=== PATIENT | female | born 2000 | race African-American/Black ===

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

== ENCOUNTER 2020-06-18 10:32 | Inpatient (IN) | payer MEDICAID ==
[~2020-06-18] VITALS: Ht 165.1 cm; Wt 93.7 kg
[~2020-06-18 10:32] MED LIST: FERR325T6 MT
[2020-06-18] MEDS ORDERED: IBUPROFEN 600MG TABLET PO ONE (10:45)
[2020-06-18 11:19] LABS: BASOPHILS % 0.6 % (0.0-2.0); EOSINOPHILS % 4.4 % (0.0-5.0); HEMOGLOBIN. 12.1 g/dL (12.0-16.0); LYMPHOCYTES % 16.4 % (20.0-50.0); MEAN CORPUSCULAR HEMOGLOBIN 25.9 pg (28.0-32.0); MEAN PLATELET VOLUME 8.2 fl (7.4-10.4); MONOCYTES % 8.5 % (2.0-8.0); NEUTROPHILS % 70.1 % (40.0-76.0); PLATELET 309 x1000/uL (130-400); RED BLOOD CELL COUNT 4.69 mill/uL (4.2-5.4); RED CELL DISTRIBUTION WIDTH 17.7 % (11.6-14.6)
[2020-06-18 11:27] LABS: CHLORIDE 109 mEq/L (98-107)
[2020-06-18] MEDS ORDERED: LORAZEPAM 2MG/ML CPJ IV ONE ×2 (11:30→15:15)
[2020-06-18] MEDS ORDERED: LORAZEPAM 2MG/ML CPJ ONE (11:37)
[2020-06-18] MEDS ORDERED: PHENYTOIN SODIUM EXTENDED 100MG CAPSULE PO ONE ×2 (13:45→16:09)
[2020-06-18 16:01] LABS: HCG SCREEN NEGATIVE
[2020-06-18] MEDS ORDERED: LORAZEPAM 2MG/ML CPJ IM ONE (20:45)
[2020-06-18] MEDS: OLANZAPINE 10 MG/VIAL IM ONE ×2 (21:12→21:40)
[2020-06-18 23:20] LABS: CHLORIDE 110 mEq/L (98-107)
[2020-06-19] VITALS (7 sets, daily range): BP systolic 106–160; BP diastolic 50–59
[2020-06-19] MEDS ORDERED: CLONIDINE 0.1MG TABLET PO PRN (10:00)
[2020-06-19] MEDS: LAMOTRIGINE 150MG TABLET PO SCH (21:10)
[2020-06-19] MEDS: PHENYTOIN SODIUM EXTENDED 100MG CAPSULE PO SCH (21:10)
[2020-06-19 22:30] LABS: *BARBITURATES SCREEN URINE NEGATIVE (NEGATIVE); *BENZODIAZEPINES SCREEN URINE NEGATIVE (NEGATIVE)
[2020-06-19 22:31] LABS: *AMPHETAMINES SCREEN URINE NEGATIVE (NEGATIVE); *COCAINE SCREEN URINE NEGATIVE (NEGATIVE); CANNABINOID URINE SCREEN NEGATIVE (NEGATIVE); METHADONE URINE SCREEN NEGATIVE (NEGATIVE); OPIATES URINE SCREEN NEGATIVE (NEGATIVE); PHENCYCLIDINE URINE SCREEN NEGATIVE (NEGATIVE)
[2020-06-19] MEDS: ACETAMINOPHEN 325MG TABLET PO PRN (23:24)
[2020-06-20] VITALS (7 sets, daily range): BP systolic 104–117; BP diastolic 50–61
[2020-06-20] MEDS: PHENYTOIN SODIUM EXTENDED 100MG CAPSULE PO SCH ×4 (06:26→22:59)
[2020-06-20] MEDS: LAMOTRIGINE 150MG TABLET PO SCH ×2 (08:23→21:00)
[2020-06-20] MEDS: LORAZEPAM 2MG/ML CPJ IV PRN ×2 (10:09→21:21)
[2020-06-20 12:08] LABS: BASOPHILS % 0.7 % (0.0-2.0); EOSINOPHILS % 4.2 % (0.0-5.0); HEMATOCRIT. 35.3 % (36.0-48.0); HEMOGLOBIN. 11.4 g/dL (12.0-16.0); LYMPHOCYTES % 16.7 % (20.0-50.0); MEAN CORPUSCULAR HEMOGLOBIN 26.2 pg (28.0-32.0); MEAN CORPUSCULAR VOLUME 81.5 fL (81.0-99.0); MEAN PLATELET VOLUME 8.4 fl (7.4-10.4); MONOCYTES % 9.9 % (2.0-8.0); NEUTROPHILS % 68.5 % (40.0-76.0); PLATELET 282 x1000/uL (130-400); RED BLOOD CELL COUNT 4.33 mill/uL (4.2-5.4); RED CELL DISTRIBUTION WIDTH 17.5 % (11.6-14.6)
[2020-06-20 12:12] LABS: CHLORIDE 109 mEq/L (98-107)
[2020-06-20] MEDS ORDERED: BISACODYL 10MG SUPP PR PRN (12:45)
[2020-06-20] MEDS ORDERED: MAGNESIUM HYDROXIDE 400MG/5ML 30ML UDC PO PRN (12:45)
[2020-06-20] MEDS ORDERED: POLYETHYLENE GLYCOL 3350 (17GM) 1 DOSE PACK PO PRN (12:45)
[2020-06-20] MEDS: DOCUSATE SODIUM SUGAR FREE 100MG/10ML UDC PO SCH (13:59)
[2020-06-20] MEDS: SENNOSIDES/DOCUSATE SOD 8.6/50MG TABLET PO SCH (14:00)
[2020-06-20] MEDS: ACETAMINOPHEN 325MG TABLET PO PRN ×2 (16:42→21:00)
[2020-06-20] MEDS ORDERED: NA PHOS,M-B/NA PHOS,DI-BA ENEMA 118ML PR ONE (18:30)
[2020-06-20] MEDS ORDERED: PHENYTOIN SODIUM 500 MG in SODIUM CHLORIDE 0.9% 50 ML IV NR (22:00)
[2020-06-20] MEDS: HALOPERIDOL LACTATE 5MG/ML VIAL IM PRN (22:07)
[2020-06-21] VITALS (8 sets, daily range): BP systolic 93–119; BP diastolic 46–70
[2020-06-21] MEDS ORDERED: LAMO100T16 PO (07:47)
[2020-06-21] MEDS ORDERED: PHEN100C12 PO (07:47)
[2020-06-21] MEDS ORDERED: ESCI-7 PO (07:47)
[2020-06-21] MEDS ORDERED: FOLI-43 PO (07:47)
[2020-06-21] MEDS ORDERED: NITR100C11 PO (07:47)
[2020-06-21] MEDS ORDERED: OLAN10TA19 PO (07:47)
[2020-06-21] MEDS ORDERED: VALP250C3 PO (07:47)
[2020-06-21] MEDS ORDERED: RISP1TAB97 PO (07:47)
[2020-06-21] MEDS ORDERED: FLUO20CA39 PO (07:47)
[2020-06-21] MEDS: DOCUSATE SODIUM SUGAR FREE 100MG/10ML UDC PO SCH ×2 (09:00→09:23)
[2020-06-21] MEDS: SENNOSIDES/DOCUSATE SOD 8.6/50MG TABLET PO SCH (09:23)
[2020-06-21] MEDS: LAMOTRIGINE 150MG TABLET PO SCH ×2 (09:23→20:39)
[2020-06-21] MEDS: PHENYTOIN SODIUM EXTENDED 100MG CAPSULE PO SCH ×2 (09:24→18:00)
[2020-06-21] MEDS ORDERED: DEXT 5%/0.9% NACL 1,000 ML IV SCH (13:45)
[2020-06-21] MEDS: ONDANSETRON HCL 4MG/2ML INJ IV PRN (14:15)
[2020-06-21] MEDS ORDERED: DEXT 5%/0.45% NACL 500ML 1,000 ML IV SCH (14:30)
[2020-06-21] MEDS: DEXT 5%/0.45% NACL 1000ML 1,000 ML IV SCH (18:53)
[2020-06-21] MEDS: CEFTRIAXONE 1,000 MG in DEXTROSE 5% WATER 50 ML IV SCH (20:39)
[2020-06-21] MEDS: ACETAMINOPHEN 325MG TABLET PO PRN (21:00)
[2020-06-21] MEDS: LORAZEPAM 2MG/ML CPJ IV PRN (22:55)
[2020-06-21] MEDS ORDERED: LORAZEPAM 2MG/ML CPJ IV NR ×2 (23:35→23:36)
[2020-06-22] VITALS (8 sets, daily range): BP systolic 101–151; BP diastolic 43–97
[2020-06-22] MEDS: HALOPERIDOL LACTATE 5MG/ML VIAL IM PRN ×2 (00:55→12:20)
[2020-06-22] MEDS: DEXT 5%/0.45% NACL 1000ML 1,000 ML IV SCH ×2 (06:16→17:32)
[2020-06-22] MEDS: SENNOSIDES/DOCUSATE SOD 8.6/50MG TABLET PO SCH (09:00)
[2020-06-22] MEDS: DOCUSATE SODIUM SUGAR FREE 100MG/10ML UDC PO SCH (09:00)
[2020-06-22] MEDS: PHENYTOIN SODIUM EXTENDED 100MG CAPSULE PO SCH ×2 (09:14→17:32)
[2020-06-22] MEDS: LAMOTRIGINE 150MG TABLET PO SCH ×2 (09:14→20:33)
[2020-06-22] MEDS ORDERED: PHENYTOIN SODIUM 500 MG in SODIUM CHLORIDE 0.9% 50 ML IV SCH (14:00)
[2020-06-22] MEDS ORDERED: PHENYTOIN SODIUM EXTENDED 100MG CAPSULE PO NR (17:30)
[2020-06-22] MEDS ORDERED: LORAZEPAM 1MG TABLET PO PRN ×2 (17:30→17:45)
[2020-06-22] MEDS ORDERED: LORAZEPAM 2MG/ML CPJ IM PRN (17:30)
[2020-06-22] MEDS: ONDANSETRON HCL 4MG/2ML INJ IV PRN (18:21)
[2020-06-22] MEDS: MAGNESIUM/ALUMINUM HYDROXIDE/SIMETHICONE 30ML UDC PO PRN (18:34)
[2020-06-22] MEDS: LORAZEPAM 2MG/ML CPJ IV PRN ×2 (19:15→23:36)
[2020-06-22] MEDS: CEFTRIAXONE 1,000 MG in DEXTROSE 5% WATER 50 ML IV SCH (20:33)
[2020-06-23] VITALS (12 sets, daily range): BP systolic 99–121; BP diastolic 46–63
[2020-06-23] MEDS: DEXT 5%/0.45% NACL 1000ML 1,000 ML IV SCH ×3 (05:48→17:34)
[2020-06-23] MEDS: DOCUSATE SODIUM SUGAR FREE 100MG/10ML UDC PO SCH (09:00)
[2020-06-23] MEDS: SENNOSIDES/DOCUSATE SOD 8.6/50MG TABLET PO SCH (09:00)
[2020-06-23] MEDS: LAMOTRIGINE 150MG TABLET PO SCH ×2 (09:16→20:17)
[2020-06-23] MEDS: PHENYTOIN SODIUM EXTENDED 100MG CAPSULE PO SCH ×2 (09:16→17:35)
[2020-06-23] MEDS: LORAZEPAM 2MG/ML CPJ IV PRN ×2 (13:41→20:36)
[2020-06-23] MEDS: CEFTRIAXONE 1,000 MG in DEXTROSE 5% WATER 50 ML IV SCH (20:17)
[2020-06-23] MEDS: HALOPERIDOL LACTATE 5MG/ML VIAL IM PRN (21:13)
[2020-06-23] MEDS ORDERED: DIPHENHYDRAMINE 50MG/ML VIAL IV NR (21:45)
[2020-06-23] MEDS ORDERED: LORAZEPAM 2MG/ML CPJ IV NR (21:45)
[2020-06-23] MEDS ORDERED: HALOPERIDOL LACTATE 5MG/ML VIAL IM NR (21:45)
[2020-06-24] VITALS (7 sets, daily range): BP systolic 95–120; BP diastolic 42–79
[2020-06-24] MEDS: LORAZEPAM 2MG/ML CPJ IV PRN ×2 (04:55→11:11)
[2020-06-24] MEDS: HALOPERIDOL LACTATE 5MG/ML VIAL IM PRN (05:21)
[2020-06-24 06:21] LABS: BASOPHILS % 0.4 % (0.0-2.0); EOSINOPHILS % 6.5 % (0.0-5.0); HEMATOCRIT. 33.9 % (36.0-48.0); LYMPHOCYTES % 21.6 % (20.0-50.0); MEAN CORPUSCULAR HEMOGLOBIN 26.4 pg (28.0-32.0); MEAN CORPUSCULAR VOLUME 81.6 fL (81.0-99.0); MEAN PLATELET VOLUME 8.8 fl (7.4-10.4); NEUTROPHILS % 61.5 % (40.0-76.0); PLATELET 311 x1000/uL (130-400); RED BLOOD CELL COUNT 4.16 mill/uL (4.2-5.4); RED CELL DISTRIBUTION WIDTH 17.7 % (11.6-14.6)
[2020-06-24 08:04] LABS: CHLORIDE 108 mEq/L (98-107)
[2020-06-24] MEDS: DOCUSATE SODIUM SUGAR FREE 100MG/10ML UDC PO SCH ×2 (09:00→10:25)
[2020-06-24] MEDS: LAMOTRIGINE 150MG TABLET PO SCH ×2 (10:24→20:39)
[2020-06-24] MEDS: PHENYTOIN SODIUM EXTENDED 100MG CAPSULE PO SCH ×2 (10:24→17:19)
[2020-06-24] MEDS: SENNOSIDES/DOCUSATE SOD 8.6/50MG TABLET PO SCH (10:24)
[2020-06-24] MEDS: CLONAZEPAM 0.5MG TABLET PO SCH ×3 (10:30→17:19)
[2020-06-24] MEDS: DEXT 5%/0.45% NACL 1000ML 1,000 ML IV SCH (12:17)
[2020-06-24] MEDS: MAGNESIUM/ALUMINUM HYDROXIDE/SIMETHICONE 30ML UDC PO PRN (20:39)
[2020-06-25] VITALS (7 sets, daily range): BP systolic 94–127; BP diastolic 43–79
[2020-06-25 06:05] LABS: CHLORIDE 107 mEq/L (98-107)
[2020-06-25 06:21] LABS: BASOPHILS % 0.6 % (0.0-2.0); HEMOGLOBIN. 10.6 g/dL (12.0-16.0); LYMPHOCYTES % 19.7 % (20.0-50.0); MEAN CORPUSCULAR HEMOGLOBIN 26.8 pg (28.0-32.0); MEAN CORPUSCULAR VOLUME 83.1 fL (81.0-99.0); MEAN PLATELET VOLUME 8.8 fl (7.4-10.4); NEUTROPHILS % 62.7 % (40.0-76.0); PLATELET 295 x1000/uL (130-400); RED BLOOD CELL COUNT 3.97 mill/uL (4.2-5.4); RED CELL DISTRIBUTION WIDTH 17.5 % (11.6-14.6)
[2020-06-25] MEDS: DOCUSATE SODIUM SUGAR FREE 100MG/10ML UDC PO SCH (09:00)
[2020-06-25] MEDS: CLONAZEPAM 0.5MG TABLET PO SCH ×3 (09:00→17:12)
[2020-06-25] MEDS: PHENYTOIN SODIUM EXTENDED 100MG CAPSULE PO SCH ×2 (10:05→17:00)
[2020-06-25] MEDS: SENNOSIDES/DOCUSATE SOD 8.6/50MG TABLET PO SCH (10:08)
[2020-06-25] MEDS: LAMOTRIGINE 150MG TABLET PO SCH ×2 (10:08→20:28)
[2020-06-25] MEDS: ACETAMINOPHEN 325MG TABLET PO PRN ×2 (13:05→20:28)
[2020-06-25] MEDS: LORAZEPAM 2MG/ML CPJ IM PRN (13:33)
[2020-06-25 14:15] LABS: TOTAL IRON BINDING CAPACITY 373 ug/dL (250-450)
[2020-06-25] MEDS ORDERED: PHENYTOIN SODIUM EXTENDED 100MG CAPSULE PO NR (16:00)
[2020-06-25] MEDS: HALOPERIDOL LACTATE 5MG/ML VIAL IM PRN (17:27)
[2020-06-25] MEDS ORDERED: DIPHENHYDRAMINE 25MG CAPSULE PO NR (21:57)
[2020-06-26] VITALS (7 sets, daily range): BP systolic 94–121; BP diastolic 49–89
[2020-06-26] MEDS: DOCUSATE SODIUM SUGAR FREE 100MG/10ML UDC PO SCH (09:00)
[2020-06-26] MEDS: SENNOSIDES/DOCUSATE SOD 8.6/50MG TABLET PO SCH (09:04)
[2020-06-26] MEDS: LAMOTRIGINE 150MG TABLET PO SCH ×2 (09:04→20:03)
[2020-06-26] MEDS: PHENYTOIN SODIUM EXTENDED 100MG CAPSULE PO SCH ×2 (09:04→17:12)
[2020-06-26] MEDS: CLONAZEPAM 0.5MG TABLET PO SCH ×3 (09:05→17:13)
[2020-06-26] MEDS ORDERED: LIDOCAINE HCL 1% 20ML VIAL (Pyxis) INJ ONE (09:08)
[2020-06-26] MEDS: ACETAMINOPHEN 325MG TABLET PO PRN ×2 (10:41→20:03)
[2020-06-26] MEDS ORDERED: DOCUSATE SODIUM SUGAR FREE 100MG/10ML UDC PO PRN (11:30)
[2020-06-26] MEDS: LORAZEPAM 1MG TABLET PO PRN (17:12)
[2020-06-26] MEDS: MICONAZOLE NITRATE 2% OINT 71GM TOP SCH (17:13)
[2020-06-26] MEDS: LORAZEPAM 2MG/ML CPJ IM PRN (20:02)
[2020-06-26] MEDS: LORAZEPAM 2MG/ML CPJ IV PRN (21:24)
[2020-06-26] MEDS: DIPHENHYDRAMINE 25MG CAPSULE PO PRN (21:30)
[2020-06-26] MEDS: HALOPERIDOL LACTATE 5MG/ML VIAL IM PRN (23:32)
[2020-06-27] VITALS: BP 110/80
[2020-06-27 04:00] VITALS: BP 122/66
[2020-06-27 08:00] VITALS: BP 139/77
[2020-06-27] MEDS: LAMOTRIGINE 150MG TABLET PO SCH ×2 (08:50→21:13)
[2020-06-27] MEDS: PHENYTOIN SODIUM EXTENDED 100MG CAPSULE PO SCH ×2 (08:50→18:00)
[2020-06-27] MEDS: MICONAZOLE NITRATE 2% OINT 71GM TOP SCH ×2 (08:51→18:00)
[2020-06-27] MEDS: CLONAZEPAM 0.5MG TABLET PO SCH ×3 (08:51→18:00)
[2020-06-27] MEDS: SENNOSIDES/DOCUSATE SOD 8.6/50MG TABLET PO SCH (09:00)
[2020-06-27 10:18] LABS: BASOPHILS % 0.5 % (0.0-2.0); EOSINOPHILS % 8.3 % (0.0-5.0); HEMATOCRIT. 33.3 % (36.0-48.0); HEMOGLOBIN. 10.9 g/dL (12.0-16.0); LYMPHOCYTES % 23.6 % (20.0-50.0); MEAN CORPUSCULAR HEMOGLOBIN 27.1 pg (28.0-32.0); MEAN CORPUSCULAR VOLUME 82.9 fL (81.0-99.0); MEAN PLATELET VOLUME 8.8 fl (7.4-10.4); MONOCYTES % 8.7 % (2.0-8.0); NEUTROPHILS % 58.9 % (40.0-76.0); PLATELET 275 x1000/uL (130-400); RED BLOOD CELL COUNT 4.02 mill/uL (4.2-5.4); RED CELL DISTRIBUTION WIDTH 17.4 % (11.6-14.6)
[2020-06-27 10:27] LABS: CHLORIDE 108 mEq/L (98-107)
[2020-06-27 12:00] VITALS: BP 117/62
[2020-06-27] MEDS: DIPHENHYDRAMINE 25MG CAPSULE PO PRN (13:26)
[2020-06-27] MEDS: METRONIDAZOLE 0.75% VAG GEL 70GM VG SCH (13:27)
[2020-06-27 16:00] VITALS: BP 139/71
[2020-06-27 20:00] VITALS: BP 122/80
[2020-06-28] VITALS: BP 117/65
[2020-06-28] MEDS: LORAZEPAM 2MG/ML CPJ IV PRN ×2 (00:16→22:38)
[2020-06-28] MEDS: HALOPERIDOL LACTATE 5MG/ML VIAL IM PRN ×2 (01:53→20:18)
[2020-06-28 04:00] VITALS: BP 102/67
[2020-06-28 06:59] LABS: BASOPHILS % 0.5 % (0.0-2.0); EOSINOPHILS % 6.7 % (0.0-5.0); HEMATOCRIT. 33.4 % (36.0-48.0); HEMOGLOBIN. 10.9 g/dL (12.0-16.0); MEAN CORPUSCULAR HEMOGLOBIN 26.6 pg (28.0-32.0); MEAN CORPUSCULAR VOLUME 81.5 fL (81.0-99.0); MEAN PLATELET VOLUME 8.5 fl (7.4-10.4); MONOCYTES % 9.7 % (2.0-8.0); NEUTROPHILS % 64.1 % (40.0-76.0); PLATELET 299 x1000/uL (130-400); RED BLOOD CELL COUNT 4.09 mill/uL (4.2-5.4)
[2020-06-28 07:10] LABS: CHLORIDE 107 mEq/L (98-107)
[2020-06-28] MEDS: PHENYTOIN SODIUM EXTENDED 100MG CAPSULE PO SCH ×2 (08:37→16:09)
[2020-06-28] MEDS: LAMOTRIGINE 150MG TABLET PO SCH ×2 (08:37→20:05)
[2020-06-28] MEDS: CLONAZEPAM 0.5MG TABLET PO SCH ×3 (08:37→16:09)
[2020-06-28] MEDS: SENNOSIDES/DOCUSATE SOD 8.6/50MG TABLET PO SCH (08:37)
[2020-06-28] MEDS: MICONAZOLE NITRATE 2% OINT 71GM TOP SCH ×2 (08:38→16:11)
[2020-06-28] MEDS: METRONIDAZOLE 0.75% VAG GEL 70GM VG SCH (08:38)
[2020-06-28 11:00] VITALS: BP 132/78
[2020-06-28] MEDS: ACETAMINOPHEN 325MG TABLET PO PRN ×2 (12:04→16:08)
[2020-06-28] MEDS: DIPHENHYDRAMINE HCL/ZINC ACET 28 GM CREAM TOP SCH ×2 (12:16→16:11)
[2020-06-28 15:28] VITALS: BP 124/80
[2020-06-28 17:21] VITALS: BP 133/82
[2020-06-28 20:00] VITALS: BP 107/63
[2020-06-28] MEDS: LORAZEPAM 1MG TABLET PO PRN (22:17)
[2020-06-28] MEDS: DIPHENHYDRAMINE 25MG CAPSULE PO PRN (23:11)
[2020-06-29] VITALS: BP 121/64
[2020-06-29 04:00] VITALS: BP 105/53
[2020-06-29 08:00] VITALS: BP 119/69
[2020-06-29] MEDS: PHENYTOIN SODIUM EXTENDED 100MG CAPSULE PO SCH ×2 (09:06→17:09)
[2020-06-29] MEDS: SENNOSIDES/DOCUSATE SOD 8.6/50MG TABLET PO SCH (09:06)
[2020-06-29] MEDS: METRONIDAZOLE 0.75% VAG GEL 70GM VG SCH (09:06)
[2020-06-29] MEDS: MICONAZOLE NITRATE 2% OINT 71GM TOP SCH ×2 (09:06→17:00)
[2020-06-29] MEDS: DIPHENHYDRAMINE HCL/ZINC ACET 28 GM CREAM TOP SCH ×2 (09:06→17:00)
[2020-06-29] MEDS: LAMOTRIGINE 150MG TABLET PO SCH ×2 (09:11→21:30)
[2020-06-29] MEDS: LORAZEPAM 2MG/ML CPJ IV PRN ×3 (09:40→23:40)
[2020-06-29] MEDS: FOLIC ACID 1MG TABLET PO SCH (12:41)
[2020-06-29] MEDS: FERROUS SULFATE 325MG TABLET PO SCH ×2 (12:41→17:14)
[2020-06-29 13:10] VITALS: BP 116/71
[2020-06-29 15:47] LABS: BASOPHILS % 0.6 % (0.0-2.0); HEMATOCRIT. 34.6 % (36.0-48.0); HEMOGLOBIN. 11.5 g/dL (12.0-16.0); LYMPHOCYTES % 19.6 % (20.0-50.0); MEAN CORPUSCULAR HEMOGLOBIN 27.3 pg (28.0-32.0); MEAN CORPUSCULAR VOLUME 82.4 fL (81.0-99.0); MEAN PLATELET VOLUME 8.2 fl (7.4-10.4); MONOCYTES % 8.3 % (2.0-8.0); NEUTROPHILS % 63.5 % (40.0-76.0); PLATELET 292 x1000/uL (130-400); RED CELL DISTRIBUTION WIDTH 17.1 % (11.6-14.6)
[2020-06-29 16:00] VITALS: BP 117/86
[2020-06-29 16:01] LABS: CHLORIDE 106 mEq/L (98-107)
[2020-06-29 23:30] VITALS: BP 98/49
[2020-06-30 04:00] VITALS: BP 108/64
[2020-06-30 08:00] VITALS: BP 113/72
[2020-06-30] MEDS: SENNOSIDES/DOCUSATE SOD 8.6/50MG TABLET PO SCH (09:47)
[2020-06-30] MEDS: PHENYTOIN SODIUM EXTENDED 100MG CAPSULE PO SCH ×2 (09:47→17:03)
[2020-06-30] MEDS: FOLIC ACID 1MG TABLET PO SCH (09:47)
[2020-06-30] MEDS: LAMOTRIGINE 150MG TABLET PO SCH ×2 (09:48→20:38)
[2020-06-30] MEDS: FERROUS SULFATE 325MG TABLET PO SCH ×3 (09:48→17:00)
[2020-06-30] MEDS: DIPHENHYDRAMINE HCL/ZINC ACET 28 GM CREAM TOP SCH ×2 (09:50→17:03)
[2020-06-30] MEDS: MICONAZOLE NITRATE 2% OINT 71GM TOP SCH ×2 (09:51→17:03)
[2020-06-30] MEDS: METRONIDAZOLE 0.75% VAG GEL 70GM VG SCH (09:51)
[2020-06-30 12:00] VITALS: BP 118/61
[2020-06-30] MEDS: HALOPERIDOL LACTATE 5MG/ML VIAL IM PRN (16:24)
[2020-06-30 20:00] VITALS: BP 139/65
[2020-06-30] MEDS: LORAZEPAM 1MG TABLET PO PRN (20:39)
[2020-06-30] MEDS: ACETAMINOPHEN 325MG TABLET PO PRN (20:42)
[2020-06-30] MEDS: DIPHENHYDRAMINE 25MG CAPSULE PO PRN (20:42)
[2020-06-30] MEDS: LORAZEPAM 2MG/ML CPJ IV PRN (21:30)
[2020-07-01] MEDS: HALOPERIDOL LACTATE 5MG/ML VIAL IM PRN (00:20)
[2020-07-01] MEDS: FERROUS SULFATE 325MG TABLET PO SCH ×3 (07:15→17:15)
[2020-07-01 09:00] VITALS: BP 111/50
[2020-07-01] MEDS: SENNOSIDES/DOCUSATE SOD 8.6/50MG TABLET PO SCH (09:00)
[2020-07-01] MEDS: FOLIC ACID 1MG TABLET PO SCH (09:00)
[2020-07-01] MEDS: METRONIDAZOLE 0.75% VAG GEL 70GM VG SCH (10:51)
[2020-07-01] MEDS: LAMOTRIGINE 150MG TABLET PO SCH ×2 (10:51→20:21)
[2020-07-01] MEDS: PHENYTOIN SODIUM EXTENDED 100MG CAPSULE PO SCH ×2 (10:51→17:54)
[2020-07-01] MEDS: DIPHENHYDRAMINE HCL/ZINC ACET 28 GM CREAM TOP SCH ×2 (10:52→17:00)
[2020-07-01] MEDS: MICONAZOLE NITRATE 2% OINT 71GM TOP SCH ×2 (10:52→17:00)
[2020-07-01 13:30] VITALS: BP 102/54
[2020-07-01 17:00] VITALS: BP 92/57
[2020-07-01] MEDS: ONDANSETRON HCL 4MG/2ML INJ IV PRN (18:13)
[2020-07-01 20:00] VITALS: BP 109/53
[2020-07-01] MEDS: LAMOTRIGINE 25MG TABLET PO SCH (20:21)
[2020-07-01] MEDS: DIPHENHYDRAMINE 25MG CAPSULE PO PRN (20:39)
[2020-07-01] MEDS ORDERED: LAMOTRIGINE 150MG TABLET PO SCH (21:00)
[2020-07-01] MEDS: LORAZEPAM 2MG/ML CPJ IV PRN (23:35)
[2020-07-02] VITALS: BP 110/62
[2020-07-02 04:00] VITALS: BP 119/71
[2020-07-02] MEDS: FERROUS SULFATE 325MG TABLET PO SCH ×3 (07:15→17:08)
[2020-07-02 08:00] VITALS: BP 99/48
[2020-07-02] MEDS: SENNOSIDES/DOCUSATE SOD 8.6/50MG TABLET PO SCH (09:00)
[2020-07-02] MEDS: FOLIC ACID 1MG TABLET PO SCH (09:00)
[2020-07-02] MEDS: MICONAZOLE NITRATE 2% OINT 71GM TOP SCH ×2 (09:00→17:00)
[2020-07-02] MEDS: METRONIDAZOLE 0.75% VAG GEL 70GM VG SCH (09:00)
[2020-07-02] MEDS: DIPHENHYDRAMINE HCL/ZINC ACET 28 GM CREAM TOP SCH ×2 (09:00→17:00)
[2020-07-02] MEDS: PHENYTOIN SODIUM EXTENDED 100MG CAPSULE PO SCH ×2 (10:45→17:13)
[2020-07-02] MEDS: LAMOTRIGINE 150MG TABLET PO SCH ×2 (10:45→20:45)
[2020-07-02] MEDS: LAMOTRIGINE 25MG TABLET PO SCH ×2 (10:46→20:46)
[2020-07-02 12:00] VITALS: BP 110/55
[2020-07-02 16:00] VITALS: BP 105/52
[2020-07-02] MEDS: ACETAMINOPHEN 325MG TABLET PO PRN ×2 (17:13→21:51)
[2020-07-02] MEDS: LORAZEPAM 2MG/ML CPJ IV PRN ×2 (19:57→22:12)
[2020-07-02 20:00] VITALS: BP 108/62
[2020-07-02] MEDS ORDERED: CEFTRIAXONE 1,000 MG in DEXTROSE 5% WATER 50 ML IV SCH (21:00)
[2020-07-02] MEDS: VANCOMYCIN 750 MG PREMIX 150 ML IV SCH (22:07)
[2020-07-03] VITALS (10 sets, daily range): BP systolic 81–118; BP diastolic 31–78
[2020-07-03] MEDS ORDERED: PHENYTOIN SODIUM 300 MG in SODIUM CHLORIDE 0.9% 50 ML IV SCH (01:00)
[2020-07-03] MEDS: DIPHENHYDRAMINE 25MG CAPSULE PO PRN (01:39)
[2020-07-03] MEDS: LORAZEPAM 2MG/ML CPJ IV PRN ×2 (01:42→07:50)
[2020-07-03] MEDS: METRONIDAZOLE 0.75% VAG GEL 70GM VG SCH (09:00)
[2020-07-03] MEDS: DIPHENHYDRAMINE HCL/ZINC ACET 28 GM CREAM TOP SCH (09:00)
[2020-07-03] MEDS: MICONAZOLE NITRATE 2% OINT 71GM TOP SCH (09:00)
[2020-07-03] MEDS: VANCOMYCIN 750 MG PREMIX 150 ML IV SCH (09:23)
[2020-07-03] MEDS: FOLIC ACID 1MG TABLET PO SCH (09:28)
[2020-07-03] MEDS: SENNOSIDES/DOCUSATE SOD 8.6/50MG TABLET PO SCH (09:28)
[2020-07-03] MEDS: LAMOTRIGINE 25MG TABLET PO SCH (09:28)
[2020-07-03] MEDS: LAMOTRIGINE 150MG TABLET PO SCH (09:28)
[2020-07-03] MEDS: FERROUS SULFATE 325MG TABLET PO SCH (09:29)
[2020-07-03] MEDS: PHENYTOIN SODIUM EXTENDED 100MG CAPSULE PO SCH (09:29)
[2020-07-03] MEDS ORDERED: LORAZEPAM 0.5MG TABLET PO SCH (11:00)
[2020-07-03] MEDS ORDERED: ZONISAMIDE 100MG CAPSULE PO SCH (13:30)
[2020-07-03] MEDS ORDERED: MEROPENEM 1,000 MG in SODIUM CHLORIDE 0.9% 100 ML IV SCH (17:30)
== END 2020-07-03 15:30 | DRG 756 ==
LOC: ER 10:32 → 6WST 15:57 → EDBEDREQSVC 16:02 → EDBEDREQ 16:02 → CANBEDREQ 16:31 → ENRESERV 06-19 08:22 → 5EST 06-22 22:41 → 6WST 06-23 23:01 → 5WST 06-29 12:57 → 5EST 07-03 01:05
PROVIDERS: ADMIT Internal Medicine; ATTEND Internal Medicine
PROC: 4A10X4Z Monitoring of Central Nervous Electrical Activity, External Approach (ICD-10-PCS; principal; 2020-06-20)
PROC: 05HY33Z Insertion of Infusion Device into Upper Vein, Percutaneous Approach (ICD-10-PCS; 2020-06-23)
PROC: B54MZZA Ultrasonography of Right Upper Extremity Veins, Guidance (ICD-10-PCS; 2020-06-23)
PROC: B51MZZA Fluoroscopy of Right Upper Extremity Veins, Guidance (ICD-10-PCS; 2020-06-23)
PROC: 02HV33Z Insertion of Infusion Device into Superior Vena Cava, Percutaneous Approach (ICD-10-PCS; 2020-06-26)
PROC: B548ZZA Ultrasonography of Superior Vena Cava, Guidance (ICD-10-PCS; 2020-06-26)
PROC: B518ZZA Fluoroscopy of Superior Vena Cava, Guidance (ICD-10-PCS; 2020-06-26)
DX: F41.1 Generalized anxiety disorder (principal); R45.851 Suicidal ideations; E66.01 Morbid (severe) obesity due to excess calories; R07.89 Other chest pain; G40.909 Epilepsy, unspecified, not intractable, without status epilepticus; F45.9 Somatoform disorder, unspecified; J45.909 Unspecified asthma, uncomplicated; I10 Essential (primary) hypertension; F31.9 Bipolar disorder, unspecified; K59.00 Constipation, unspecified; D64.9 Anemia, unspecified; Z20.822 Contact with and (suspected) exposure to COVID-19; F99 Mental disorder, not otherwise specified; N76.0 Acute vaginitis; E53.8 Deficiency of other specified B group vitamins; N39.0 Urinary tract infection, site not specified; F41.8 Other specified anxiety disorders; L29.0 Pruritus ani; Z68.34 Body mass index [BMI] 34.0-34.9, adult; Z88.8 Allergy status to other drugs, medicaments and biological substances; Z79.899 Other long term (current) drug therapy; Z91.14 Patient's other noncompliance with medication regimen; B95.62 Methicillin resistant Staphylococcus aureus infection as the cause of diseases classified elsewhere; B96.20 Unspecified Escherichia coli [E. coli] as the cause of diseases classified elsewhere; Z16.12 Extended spectrum beta lactamase (ESBL) resistance
CPT/HCPCS: 36415; 36573; 70551; 71045; 76770; 76937; 78582; 80048; 80053; 80185; 80305; 82607; 82728; 82746; 82962; 83540; 83550; 83605; 83735; 83880; 84146; 84484; 84703; 85025; 85044; 85379; 87077; 87186; 87426; 93005; 93306; 93970; 95816; 99291; A6261; A9558; C1725; C1769; C1893; J0696; J1165; J1200; J1630; J2060; J2185; J2405; J3370; J3490; J7040; J7050; J7060; Q0163; U0003; A4315

== ENCOUNTER 2020-09-12 00:58 | Emergency (ER) | payer MEDICAID ==
[~2020-09-12] VITALS: Ht 170.2 cm; Wt 82.0 kg
[~2020-09-12 00:58] MED LIST changes: +ABIL5 PO; +ATOM40CA MT; +DIVA-18 PO; +ESCI-7 PO; +FLUO20CA39 PO; +FOLI-43 PO; +HYDR-3782 PO; +LAMO100T16 PO; +NITR100C11 PO; +OLAN10TA19 PO; +PHEN100C12 PO; +PHEN100C4 PO; +RISP1TAB97 PO; +VALP250C3 PO; +ZONI100C34 PO
[2020-09-12] MEDS ORDERED: ASPIRIN 81MG TABLET PO ONE (02:00)
[2020-09-12 02:18] LABS: CHLORIDE 106 mEq/L (98-107)
[2020-09-12 02:21] LABS: BASOPHILS % 0.7 % (0.0-2.0); EOSINOPHILS % 2.2 % (0.0-5.0); HEMATOCRIT. 35.9 % (36.0-48.0); HEMOGLOBIN. 11.8 g/dL (12.0-16.0); LYMPHOCYTES % 21.1 % (20.0-50.0); MEAN CORPUSCULAR VOLUME 84.7 fL (81.0-99.0); MONOCYTES % 7.9 % (2.0-8.0); NEUTROPHILS % 68.1 % (40.0-76.0); PLATELET 762 x1000/uL (130-400); RED BLOOD CELL COUNT 4.23 mill/uL (4.2-5.4); RED CELL DISTRIBUTION WIDTH 17.6 % (11.6-14.6)
[2020-09-12] MEDS ORDERED: LORAZEPAM 2MG/ML CPJ IV NR (03:30)
[2020-09-12] MEDS ORDERED: ENOXAPARIN 100MG/ML SYR SUBCUT NR (05:00)
[2020-09-12] MEDS ORDERED: ONDANSETRON HCL 4MG/2ML INJ IV PRN (06:45)
[2020-09-12] MEDS ORDERED: ARIPIPRAZOLE 5MG TABLET PO SCH (06:45)
[2020-09-12] MEDS ORDERED: ACETAMINOPHEN 325MG TABLET PO PRN (06:45)
[2020-09-12] MEDS ORDERED: FLUOXETINE HCL 20MG CAPSULE PO SCH (06:45)
[2020-09-12] MEDS ORDERED: LORAZEPAM 2MG/ML CPJ IV PRN (06:45)
[2020-09-12] MEDS ORDERED: CLONIDINE 0.1MG TABLET PO PRN (06:45)
[2020-09-12] MEDS ORDERED: LIDOCAINE HCL 1% 20ML VIAL (Pyxis) INJ ONE (08:42)
[2020-09-12] MEDS ORDERED: LAMOTRIGINE 100MG TABLET PO SCH (09:00)
[2020-09-12] MEDS ORDERED: DIVALPROEX SODIUM 500MG DR TABLET PO SCH (09:00)
[2020-09-12] MEDS ORDERED: VALPROIC ACID 250MG CAPSULE PO SCH (09:00)
[2020-09-12] MEDS ORDERED: RISPERIDONE 1MG TABLET PO SCH (09:00)
[2020-09-12] MEDS ORDERED: ZONISAMIDE 100MG CAPSULE PO SCH (09:00)
[2020-09-12] MEDS ORDERED: FOLIC ACID 1MG TABLET PO SCH (09:00)
[2020-09-12] MEDS: PHENYTOIN SODIUM EXTENDED 100MG CAPSULE PO SCH ×2 (09:50→14:47)
[2020-09-12] MEDS ORDERED: IOHEXOL-350 100 ML BOTTLE ONE (12:06)
[2020-09-12 15:30] VITALS: BP 116/62
== END 2020-09-12 16:04 ==
LOC: ER 00:58 → EDBEDREQ 03:50 → EDBEDREQTM 03:50 → ENRESERV 08:10 → CANBEDREQ 15:04 → ER 16:04
DX: G40.909 Epilepsy, unspecified, not intractable, without status epilepticus (principal); F06.8 Other specified mental disorders due to known physiological condition; R07.89 Other chest pain; R45.851 Suicidal ideations; Z91.14 Patient's other noncompliance with medication regimen; Z91.018 Allergy to other foods; Z91.09 Other allergy status, other than to drugs and biological substances
CPT/HCPCS: 36415; 71045; 71275; 76937; 80053; 82962; 83880; 84484; 85025; 85379; 93005; 96372; 96374; 99285; C1725; J1650; J2060; J3490; Q9967; Z7610

== ENCOUNTER 2020-10-10 20:59 | Inpatient (IN) | payer MEDICAID, OTHER ==
[~2020-10-10] VITALS: Ht 167.6 cm; Wt 84.8 kg
[2020-10-10] MEDS ORDERED: LORAZEPAM 2MG/ML CPJ IV ONE (21:45)
[2020-10-10] MEDS ORDERED: LORAZEPAM 2MG/ML CPJ IM STA (23:33)
[2020-10-11 00:22] LABS: BASOPHILS % 0.8 % (0.0-2.0); EOSINOPHILS % 3.3 % (0.0-5.0); HEMATOCRIT. 32.4 % (36.0-48.0); HEMOGLOBIN. 10.8 g/dL (12.0-16.0); LYMPHOCYTES % 23.1 % (20.0-50.0); MEAN CORPUSCULAR HEMOGLOBIN 28.4 pg (28.0-32.0); MEAN PLATELET VOLUME 8.8 fl (7.4-10.4); MONOCYTES % 14.2 % (2.0-8.0); NEUTROPHILS % 58.6 % (40.0-76.0); PLATELET 521 x1000/uL (130-400); RED BLOOD CELL COUNT 3.81 mill/uL (4.2-5.4); RED CELL DISTRIBUTION WIDTH 17.5 % (11.6-14.6)
[2020-10-11 00:31] LABS: HCG SCREEN NEGATIVE
[2020-10-11 00:33] LABS: CHLORIDE 111 mEq/L (98-107)
[2020-10-11 00:38] LABS: ETHANOL BLOOD < 10 mg/dL
[2020-10-11 00:41] LABS: CARBAMAZEPINE 1.2 ug/mL (4-12); VALPROIC ACID <3.0 ug/mL ug/mL (50-100)
[2020-10-11 00:47] LABS: PHENOBARBITAL < 2.1 ug/mL (15.0-40.0)
[2020-10-11] MEDS ORDERED: ZONISAMIDE 100MG CAPSULE PO ONE (02:15)
[2020-10-11] MEDS ORDERED: LORAZEPAM 2MG/ML CPJ IV ONE ×2 (02:15→02:45)
[2020-10-11 03:36] LABS: CLARITY URINE TURBID (CLEAR); COLOR URINE YELLOW (YELLOW); KETONES URINE NEGATIVE (NEGATIVE); LEUKOCYTE ESTERASE URINE NEGATIVE (NEGATIVE); NITRITE URINE NEGATIVE (NEGATIVE); OCCULT BLOOD URINE 3+ (NEGATIVE); PH URINE 8.5 (4.5-8.0); PROTEIN URINE NEGATIVE (NEGATIVE); SPECIFIC GRAVITY URINE 1.013 (1.005-1.030); UROBILINOGEN URINE 0.2 E.U./dL (0.2-1.0)
[2020-10-11 03:57] LABS: *AMPHETAMINES SCREEN URINE NEGATIVE (NEGATIVE); *BARBITURATES SCREEN URINE NEGATIVE (NEGATIVE); *BENZODIAZEPINES SCREEN URINE NEGATIVE (NEGATIVE); *COCAINE SCREEN URINE NEGATIVE (NEGATIVE); METHADONE URINE SCREEN NEGATIVE (NEGATIVE)
[2020-10-11 03:58] LABS: CANNABINOID URINE SCREEN NEGATIVE (NEGATIVE); OPIATES URINE SCREEN NEGATIVE (NEGATIVE); PHENCYCLIDINE URINE SCREEN NEGATIVE (NEGATIVE)
[2020-10-11] MEDS ORDERED: ONDANSETRON HCL 4MG/2ML INJ IV PRN (05:00)
[2020-10-11] MEDS ORDERED: DIPHENHYDRAMINE 50MG/ML VIAL IV PRN (05:00)
[2020-10-11] MEDS ORDERED: ACETAMINOPHEN 325MG TABLET PO PRN ×2 (05:00)
[2020-10-11] MEDS ORDERED: CLONIDINE 0.1MG TABLET PO PRN (05:00)
[2020-10-11] MEDS ORDERED: MAGNESIUM/ALUMINUM HYDROXIDE/SIMETHICONE 30ML UDC PO PRN (05:00)
[2020-10-11] MEDS ORDERED: PHENYTOIN SODIUM 1,000 MG in SODIUM CHLORIDE 0.9% 100 ML IV NR (05:30)
[2020-10-11] MEDS: ENOXAPARIN 40MG/0.4ML SYR SUBCUT SCH (05:55)
[2020-10-11] MEDS: SODIUM CHLORIDE 0.9% INJ 3ML FLUSH IVF SCH ×3 (06:07→22:14)
[2020-10-11] MEDS ORDERED: ARIPIPRAZOLE 5MG TABLET PO SCH (09:00)
[2020-10-11] MEDS ORDERED: DIVALPROEX SODIUM 500MG DR TABLET PO SCH (09:00)
[2020-10-11] MEDS: POLYETHYLENE GLYCOL 3350 (17GM) 1 DOSE PACK PO SCH (10:02)
[2020-10-11] MEDS ORDERED: HYDROXYZINE 25MG TABLET PO PRN (21:00)
[2020-10-11] MEDS: LAMOTRIGINE 100MG TABLET PO SCH (22:14)
[2020-10-11] MEDS: TRAZODONE HCL 50MG TABLET PO SCH (22:14)
[2020-10-11] MEDS: PANTOPRAZOLE 40MG DR TABLET PO SCH (22:14)
[2020-10-12] MEDS: LORAZEPAM 2MG/ML CPJ IV PRN (00:41)
[2020-10-12] MEDS ORDERED: HALOPERIDOL LACTATE 5MG/ML VIAL IM ONE (02:30)
[2020-10-12] MEDS: ENOXAPARIN 40MG/0.4ML SYR SUBCUT SCH (05:00)
[2020-10-12] MEDS: SODIUM CHLORIDE 0.9% INJ 3ML FLUSH IVF SCH ×3 (06:00→22:00)
[2020-10-12] MEDS: PANTOPRAZOLE 40MG DR TABLET PO SCH ×2 (07:10→22:00)
[2020-10-12] MEDS: ZIPRASIDONE HCL 20MG CAPSULE PO SCH ×2 (07:11→17:51)
[2020-10-12] MEDS: LORAZEPAM 2MG/ML CPJ IM PRN ×3 (07:54→20:12)
[2020-10-12] MEDS: ZONISAMIDE 100MG CAPSULE PO SCH (08:59)
[2020-10-12] MEDS: LAMOTRIGINE 100MG TABLET PO SCH ×2 (09:00→22:00)
[2020-10-12] MEDS: FERROUS SULFATE 325MG TABLET PO SCH (09:00)
[2020-10-12] MEDS: POLYETHYLENE GLYCOL 3350 (17GM) 1 DOSE PACK PO SCH (09:01)
[2020-10-12] MEDS: TRAZODONE HCL 50MG TABLET PO SCH (22:00)
[2020-10-13] MEDS: LORAZEPAM 2MG/ML CPJ IM PRN (02:15)
[2020-10-13] MEDS: ENOXAPARIN 40MG/0.4ML SYR SUBCUT SCH (05:00)
[2020-10-13] MEDS: PANTOPRAZOLE 40MG DR TABLET PO SCH ×2 (08:35→21:27)
[2020-10-13] MEDS: ZIPRASIDONE HCL 20MG CAPSULE PO SCH ×2 (08:35→18:22)
[2020-10-13] MEDS: ZONISAMIDE 100MG CAPSULE PO SCH (09:46)
[2020-10-13] MEDS: FERROUS SULFATE 325MG TABLET PO SCH (10:01)
[2020-10-13] MEDS: LAMOTRIGINE 100MG TABLET PO SCH ×2 (10:01→21:27)
[2020-10-13] MEDS: POLYETHYLENE GLYCOL 3350 (17GM) 1 DOSE PACK PO SCH (10:01)
[2020-10-13] MEDS: TRAZODONE HCL 50MG TABLET PO SCH (21:27)
[2020-10-14] MEDS: ENOXAPARIN 40MG/0.4ML SYR SUBCUT SCH (05:22)
[2020-10-14] MEDS: ZIPRASIDONE HCL 20MG CAPSULE PO SCH ×2 (06:55→20:33)
[2020-10-14] MEDS: PANTOPRAZOLE 40MG DR TABLET PO SCH ×2 (06:55→21:00)
[2020-10-14] MEDS: LORAZEPAM 2MG/ML CPJ IV PRN (08:02)
[2020-10-14] MEDS: POLYETHYLENE GLYCOL 3350 (17GM) 1 DOSE PACK PO SCH (09:00)
[2020-10-14] MEDS: ZONISAMIDE 100MG CAPSULE PO SCH (10:24)
[2020-10-14] MEDS: LAMOTRIGINE 100MG TABLET PO SCH ×2 (10:24→21:00)
[2020-10-14] MEDS: FERROUS SULFATE 325MG TABLET PO SCH (10:24)
[2020-10-14] MEDS: TRAZODONE HCL 50MG TABLET PO SCH (21:00)
[2020-10-14] MEDS ORDERED: LAMOTRIGINE 100MG TABLET PO NR (22:41)
[2020-10-14] MEDS ORDERED: TRAZODONE HCL 50MG TABLET PO NR (22:42)
[2020-10-15] VITALS (9 sets, daily range): BP systolic 96–109; BP diastolic 44–58
[2020-10-15] MEDS: LORAZEPAM 2MG/ML CPJ IV PRN (01:59)
[2020-10-15] MEDS: ENOXAPARIN 40MG/0.4ML SYR SUBCUT SCH (05:00)
[2020-10-15] MEDS: PANTOPRAZOLE 40MG DR TABLET PO SCH (06:37)
[2020-10-15] MEDS: FERROUS SULFATE 325MG TABLET PO SCH (08:48)
[2020-10-15] MEDS: POLYETHYLENE GLYCOL 3350 (17GM) 1 DOSE PACK PO SCH (08:48)
[2020-10-15] MEDS: ZIPRASIDONE HCL 20MG CAPSULE PO SCH ×2 (08:48→17:23)
[2020-10-15] MEDS: ZONISAMIDE 100MG CAPSULE PO SCH (08:48)
[2020-10-15] MEDS: LAMOTRIGINE 100MG TABLET PO SCH ×2 (08:48→20:24)
[2020-10-15] MEDS: SODIUM CHLORIDE 0.9% INJ 3ML FLUSH IVF SCH ×2 (14:01→20:25)
[2020-10-15] MEDS: FAMOTIDINE 20MG TABLET PO SCH (20:24)
[2020-10-15] MEDS: TRAZODONE HCL 50MG TABLET PO SCH (20:24)
[2020-10-16] VITALS: BP 104/64
[2020-10-16 04:00] VITALS: BP 104/46
[2020-10-16] MEDS: ENOXAPARIN 40MG/0.4ML SYR SUBCUT SCH (05:27)
[2020-10-16] MEDS: SODIUM CHLORIDE 0.9% INJ 3ML FLUSH IVF SCH ×2 (05:27→14:00)
[2020-10-16] MEDS: FAMOTIDINE 20MG TABLET PO SCH (06:47)
[2020-10-16 07:10] VITALS: BP 93/48
[2020-10-16 09:54] LABS: BASOPHILS % 0.6 % (0.0-2.0); EOSINOPHILS % 7.2 % (0.0-5.0); HEMATOCRIT. 34.4 % (36.0-48.0); HEMOGLOBIN. 11.4 g/dL (12.0-16.0); MEAN CORPUSCULAR HEMOGLOBIN 28.7 pg (28.0-32.0); MEAN CORPUSCULAR VOLUME 86.7 fL (81.0-99.0); MEAN PLATELET VOLUME 7.9 fl (7.4-10.4); MONOCYTES % 5.8 % (2.0-8.0); NEUTROPHILS % 67.4 % (40.0-76.0); PLATELET 458 x1000/uL (130-400); RED BLOOD CELL COUNT 3.96 mill/uL (4.2-5.4); RED CELL DISTRIBUTION WIDTH 17.4 % (11.6-14.6)
[2020-10-16 10:09] LABS: CHLORIDE 107 mEq/L (98-107)
[2020-10-16] MEDS: ZIPRASIDONE HCL 20MG CAPSULE PO SCH ×2 (11:16→17:50)
[2020-10-16] MEDS: LAMOTRIGINE 100MG TABLET PO SCH (11:16)
[2020-10-16] MEDS: ZONISAMIDE 100MG CAPSULE PO SCH (11:17)
[2020-10-16] MEDS: FERROUS SULFATE 325MG TABLET PO SCH (11:18)
[2020-10-16] MEDS: POLYETHYLENE GLYCOL 3350 (17GM) 1 DOSE PACK PO SCH (11:23)
[2020-10-16 19:04] VITALS: BP 101/59
== END 2020-10-16 20:46 | DRG 53 ==
LOC: ER 20:59 → MICUSO 10-11 02:28 → EDBEDREQTM 10-11 02:57 → EDBEDREQ 10-11 02:57 → MICUSO 10-11 19:47 → 7EST 10-11 19:47 → 5EST 10-11 22:46 → MICUSO 10-11 23:17 → EDBEDREQSVC 10-14 09:21 → 6WST 10-14 23:23 → MICUSO 10-14 23:54 → 6WST 10-15 01:12
PROVIDERS: ADMIT Internal Medicine; ATTEND Internal Medicine
DX: G40.419 Other generalized epilepsy and epileptic syndromes, intractable, without status epilepticus (principal); D64.9 Anemia, unspecified; F20.9 Schizophrenia, unspecified; F31.9 Bipolar disorder, unspecified; F60.9 Personality disorder, unspecified; Z20.822 Contact with and (suspected) exposure to COVID-19; F41.1 Generalized anxiety disorder; J45.909 Unspecified asthma, uncomplicated; Z91.018 Allergy to other foods; Z88.8 Allergy status to other drugs, medicaments and biological substances; Z79.899 Other long term (current) drug therapy; Z82.49 Family history of ischemic heart disease and other diseases of the circulatory system
CPT/HCPCS: 36415; 80048; 80053; 80156; 80165; 80184; 80185; 80305; 80320; 81003; 82962; 84703; 85025; 87426; 93005; 99285; J1165; J1200; J1630; J1650; J2060; J2405; J7050; G0480

== ENCOUNTER 2020-10-18 12:09 | Emergency (ER) | payer MEDICAID ==
[~2020-10-18] VITALS: Ht 165.1 cm; Wt 68.0 kg
[2020-10-18 14:35] LABS: CLARITY URINE CLOUDY (CLEAR); COLOR URINE ORANGE (YELLOW); KETONES URINE 1+ (NEGATIVE); LEUKOCYTE ESTERASE URINE 1+ (NEGATIVE); NITRITE URINE NEGATIVE (NEGATIVE); OCCULT BLOOD URINE 3+ (NEGATIVE); PH URINE 8.5 (4.5-8.0); PROTEIN URINE TRACE (NEGATIVE); SPECIFIC GRAVITY URINE 1.014 (1.005-1.030); UROBILINOGEN URINE 0.2 E.U./dL (0.2-1.0)
[2020-10-18 15:42] LABS: EOSINOPHILS % 3.6 % (0.0-5.0); HEMATOCRIT. 33.7 % (36.0-48.0); HEMOGLOBIN. 11.3 g/dL (12.0-16.0); MEAN CORPUSCULAR HEMOGLOBIN 28.7 pg (28.0-32.0); MEAN CORPUSCULAR VOLUME 85.2 fL (81.0-99.0); MEAN PLATELET VOLUME 8.1 fl (7.4-10.4); MONOCYTES % 6.6 % (2.0-8.0); NEUTROPHILS % 67.8 % (40.0-76.0); PLATELET 475 x1000/uL (130-400); RED BLOOD CELL COUNT 3.95 mill/uL (4.2-5.4); RED CELL DISTRIBUTION WIDTH 17.5 % (11.6-14.6)
[2020-10-18 15:46] LABS: CHLORIDE 109 mEq/L (98-107)
[2020-10-18 15:58] LABS: HCG SCREEN NEGATIVE
[2020-10-18] MEDS ORDERED: NITR-87 MT (16:03)
[2020-10-18 20:30] VITALS: BP 108/62
== END 2020-10-18 20:45 | disposition short-term general hospital (02) ==
LOC: ER 12:09
DX: F44.5 Conversion disorder with seizures or convulsions (principal); N39.0 Urinary tract infection, site not specified; Z88.1 Allergy status to other antibiotic agents; Z79.899 Other long term (current) drug therapy; Z98.890 Other specified postprocedural states
CPT/HCPCS: 36415; 71045; 80053; 81003; 81025; 84703; 85025; 99285

== ENCOUNTER 2020-10-19 22:41 | Emergency (ER) | payer MEDICAID ==
[~2020-10-19] VITALS: Ht 162.6 cm; Wt 66.0 kg
[~2020-10-19 22:41] MED LIST changes: +NITR-87 MT
[2020-10-20] MEDS ORDERED: DIVALPROEX SODIUM 250MG ER TABLET PO ONE (00:15)
[2020-10-20] MEDS ORDERED: DIVA500T3 MT (03:35)
[2020-10-20 12:14] VITALS: BP 134/64
== END 2020-10-20 14:00 | disposition home or self-care (01) ==
LOC: ER 22:47
DX: R56.9 Unspecified convulsions (principal); M79.18 Myalgia, other site; F32.9 Major depressive disorder, single episode, unspecified; Z79.899 Other long term (current) drug therapy
CPT/HCPCS: 99285; Z7610

== ENCOUNTER 2020-10-22 00:16 | Emergency (ER) | payer MEDICAID ==
[~2020-10-22] VITALS: Ht 160 cm; Wt 68.0 kg
[~2020-10-22 00:16] MED LIST changes: +DIVA500T3 MT
[2020-10-22] MEDS ORDERED: ONDANSETRON HCL 4MG/2ML INJ IV STA (01:25)
[2020-10-22] MEDS ORDERED: SODIUM CHLORIDE 0.9% 500 ML IV ONE (01:30)
[2020-10-22] MEDS ORDERED: LORAZEPAM 2MG/ML CPJ IV ONE (01:30)
[2020-10-22 02:08] LABS: CHLORIDE 111 mEq/L (98-107)
[2020-10-22 02:11] LABS: BASOPHILS % 1.1 % (0.0-2.0); EOSINOPHILS % 5.5 % (0.0-5.0); ETHANOL BLOOD < 10 mg/dL; HEMATOCRIT. 37.2 % (36.0-48.0); LYMPHOCYTES % 26.8 % (20.0-50.0); MEAN CORPUSCULAR HEMOGLOBIN 28.3 pg (28.0-32.0); MEAN CORPUSCULAR VOLUME 87.4 fL (81.0-99.0); MEAN PLATELET VOLUME 8.6 fl (7.4-10.4); MONOCYTES % 6.2 % (2.0-8.0); NEUTROPHILS % 60.4 % (40.0-76.0); PLATELET 408 x1000/uL (130-400); RED BLOOD CELL COUNT 4.26 mill/uL (4.2-5.4)
[2020-10-22 02:16] LABS: HCG SCREEN NEGATIVE
[2020-10-22 02:17] LABS: PHENOBARBITAL 2.8 ug/mL (15.0-40.0)
[2020-10-22] MEDS ORDERED: DIAZEPAM 5 MG/ML 2ML CPJ IV ONE (02:30)
[2020-10-22 13:54] VITALS: BP 125/77
== END 2020-10-22 14:07 | disposition admitted as inpatient to this hospital (09) ==
LOC: ER 00:16 → EDBEDREQTM 05:48 → EDBEDREQ 05:48 → ENRESERV 08:40 → CANRESERV 08:40 → CANBEDREQ 12:45 → ER 14:07
DX: R56.9 Unspecified convulsions (principal); R00.0 Tachycardia, unspecified; F32.9 Major depressive disorder, single episode, unspecified; Z88.8 Allergy status to other drugs, medicaments and biological substances; Z79.899 Other long term (current) drug therapy; Z20.822 Contact with and (suspected) exposure to COVID-19
CPT/HCPCS: 36415; 70450; 71045; 80053; 80165; 80184; 80185; 80320; 83605; 84146; 84703; 85025; 87426; 93005; 96361; 96374; 96375; 99285; J2060; J2405; J3360; J7040; Z7610; G0480

== ENCOUNTER 2020-10-22 14:53 | Inpatient (IN) | payer MEDICAID ==
[~2020-10-22] VITALS: Ht 167.6 cm; Wt 82.1 kg
[~2020-10-22 14:53] MED LIST changes: +ETOMIDATE 2MG/ML 10ML VIAL IV ONE; +SUCCINYLCHOLINE CHLORIDE 200MG/10ML IV ONE
[2020-10-22] MEDS ORDERED: LORAZEPAM 2MG/ML CPJ IV ONE ×7 (20:30→22:15)
[2020-10-22] MEDS ORDERED: LORAZEPAM 2MG/ML CPJ IM ONE (20:30)
[2020-10-22 21:03] LABS: CLARITY URINE TURBID (CLEAR); COLOR URINE YELLOW (YELLOW); KETONES URINE TRACE (NEGATIVE); LEUKOCYTE ESTERASE URINE NEGATIVE (NEGATIVE); NITRITE URINE NEGATIVE (NEGATIVE); OCCULT BLOOD URINE 1+ (NEGATIVE); PH URINE 7.5 (4.5-8.0); PROTEIN URINE NEGATIVE (NEGATIVE); SPECIFIC GRAVITY URINE 1.012 (1.005-1.030); UROBILINOGEN URINE 0.2 E.U./dL (0.2-1.0)
[2020-10-22 21:27] LABS: *AMPHETAMINES SCREEN URINE NEGATIVE (NEGATIVE); *BARBITURATES SCREEN URINE NEGATIVE (NEGATIVE); *BENZODIAZEPINES SCREEN URINE NEGATIVE (NEGATIVE); *COCAINE SCREEN URINE NEGATIVE (NEGATIVE); CANNABINOID URINE SCREEN NEGATIVE (NEGATIVE); METHADONE URINE SCREEN NEGATIVE (NEGATIVE); OPIATES URINE SCREEN NEGATIVE (NEGATIVE); PHENCYCLIDINE URINE SCREEN NEGATIVE (NEGATIVE)
[2020-10-22 22:14] LABS: BASOPHILS % 0.9 % (0.0-2.0); EOSINOPHILS % 3.1 % (0.0-5.0); HEMATOCRIT. 32.7 % (36.0-48.0); LYMPHOCYTES % 21.9 % (20.0-50.0); MEAN CORPUSCULAR HEMOGLOBIN 28.7 pg (28.0-32.0); MEAN CORPUSCULAR VOLUME 85.4 fL (81.0-99.0); MEAN PLATELET VOLUME 8.5 fl (7.4-10.4); MONOCYTES % 7.7 % (2.0-8.0); NEUTROPHILS % 66.4 % (40.0-76.0); PLATELET 388 x1000/uL (130-400); RED BLOOD CELL COUNT 3.83 mill/uL (4.2-5.4); RED CELL DISTRIBUTION WIDTH 16.8 % (11.6-14.6)
[2020-10-22 22:18] LABS: CHLORIDE 113 mEq/L (98-107)
[2020-10-22 22:22] LABS: ETHANOL BLOOD < 10 mg/dL
[2020-10-22 22:23] LABS: HCG SCREEN NEGATIVE
[2020-10-22] MEDS ORDERED: ETOMIDATE 2MG/ML 10ML VIAL IV ONE (22:45)
[2020-10-22] MEDS ORDERED: PROPOFOL 10MG/ML 100ML 100 ML IV SCH (22:45)
[2020-10-22] MEDS ORDERED: SUCCINYLCHOLINE CHLORIDE 200MG/10ML IV ONE (22:45)
[2020-10-23 00:22] LABS: BG BASE EXCESS -5.8 mmol/L (-2.0-2.0); BG CARBOXYHEMOGLOBIN 0.4 % (0.5-1.5); BG DEOXYHEMOGLOBIN 0.2 % (0.0-5.0); BG FRACTION INSPIRED OXYGEN 100; BG HCO3 ACT 19.6 mmol/L (22.0-26.0); BG METHEMOGLOBIN 0.5 % (0.0-1.5); BG OXYGEN SATURATION 99.8 % (92.0-98.5); BG OXYHEMOGLOBIN 98.9 % (94.0-97.0); BG PCO2 37.8 mmHg (35.0-45.0); BG PH 7.332 (7.350-7.450); BG PO2 290.7 mmHg (75.0-100.0); BG SAMPLE SITE RIGHT RADIAL; BG TOTAL HEMOGLOBIN 12.3 g/dL (12.0-18.0); BG VENT MODE VENT - AC
[2020-10-23] MEDS ORDERED: PROPOFOL 10MG/ML 100ML 100 ML IV ONE (03:00)
[2020-10-23] MEDS ORDERED: DIPHENHYDRAMINE 50MG/ML VIAL IV PRN (08:00)
[2020-10-23] MEDS ORDERED: ACETAMINOPHEN 325MG TABLET PO PRN (08:00)
[2020-10-23] MEDS ORDERED: CEFTRIAXONE 1,000 MG in DEXTROSE 5% WATER 50 ML IV SCH (08:00)
[2020-10-23] MEDS ORDERED: CLONIDINE 0.1MG TABLET PO PRN (08:00)
[2020-10-23] MEDS ORDERED: MORPHINE SULFATE 2 MG/ML CPJ (NOT FOR IM USE) IV ONE ×2 (09:15→12:30)
[2020-10-23] MEDS ORDERED: CEFTRIAXONE SODIUM 1 G/VIAL ONE ×2 (09:31→12:46)
[2020-10-23] MEDS: LORAZEPAM 2MG/ML CPJ IV PRN ×3 (10:40→18:56)
[2020-10-23 12:20] LABS: CREATINE KINASE 126 IU/L (26-192)
[2020-10-23] MEDS ORDERED: LORAZEPAM 2MG/ML CPJ IV ONE ×2 (17:00→23:00)
[2020-10-23] MEDS ORDERED: SODIUM CHLORIDE 0.9% 1,000 ML IV ONE (17:15)
[2020-10-23] MEDS ORDERED: PHENYTOIN SODIUM 1,000 MG in SODIUM CHLORIDE 0.9% 100 ML IV SCH (18:00)
[2020-10-23] MEDS ORDERED: HALOPERIDOL LACTATE 5MG/ML VIAL IM ONE (21:45)
[2020-10-23] MEDS ORDERED: LACTATED RINGERS 1,000 ML IV SCH ×2 (23:00)
[2020-10-24] MEDS ORDERED: SODIUM CHLORIDE 0.9% 250 ML IV NR (06:30)
[2020-10-24] MEDS: CEFTRIAXONE 1,000 MG in DEXTROSE 5% WATER 50 ML IV SCH (09:21)
[2020-10-24] MEDS: SODIUM CHLORIDE 0.9% 1,000 ML IV SCH ×2 (12:52→22:05)
[2020-10-24 16:58] LABS: BASOPHILS % 0.7 % (0.0-2.0); EOSINOPHILS % 7.6 % (0.0-5.0); HEMOGLOBIN. 10.6 g/dL (12.0-16.0); LYMPHOCYTES % 21.1 % (20.0-50.0); MEAN CORPUSCULAR HEMOGLOBIN 28.6 pg (28.0-32.0); MEAN CORPUSCULAR VOLUME 89.1 fL (81.0-99.0); MEAN PLATELET VOLUME 8.1 fl (7.4-10.4); MONOCYTES % 9.3 % (2.0-8.0); NEUTROPHILS % 61.3 % (40.0-76.0); PLATELET 267 x1000/uL (130-400); RED CELL DISTRIBUTION WIDTH 16.7 % (11.6-14.6)
[2020-10-24 17:03] LABS: CHLORIDE 114 mEq/L (98-107)
[2020-10-24 17:11] LABS: LDL CHOLESTEROL 90 mg/dL (5-100)
[2020-10-24 17:12] LABS: HDL CHOLESTEROL 46 mg/dL (40-59)
[2020-10-24] MEDS: LORAZEPAM 2MG/ML CPJ IV PRN ×2 (20:04→23:03)
[2020-10-25] MEDS: ZOLPIDEM TARTRATE 5MG TABLET PO SCH ×2 (04:14→21:00)
[2020-10-25 05:32] LABS: BASOPHILS % 0.6 % (0.0-2.0); EOSINOPHILS % 9.8 % (0.0-5.0); LYMPHOCYTES % 30.1 % (20.0-50.0); MEAN CORPUSCULAR HEMOGLOBIN 28.4 pg (28.0-32.0); MEAN CORPUSCULAR VOLUME 85.5 fL (81.0-99.0); MEAN PLATELET VOLUME 8.3 fl (7.4-10.4); MONOCYTES % 9.4 % (2.0-8.0); NEUTROPHILS % 50.1 % (40.0-76.0); PLATELET 257 x1000/uL (130-400); RED BLOOD CELL COUNT 3.86 mill/uL (4.2-5.4); RED CELL DISTRIBUTION WIDTH 16.8 % (11.6-14.6)
[2020-10-25 05:40] LABS: CHLORIDE 113 mEq/L (98-107)
[2020-10-25] MEDS: CEFTRIAXONE 1,000 MG in DEXTROSE 5% WATER 50 ML IV SCH (11:27)
[2020-10-25] MEDS: SODIUM CHLORIDE 0.9% 1,000 ML IV SCH (11:27)
[2020-10-25] MEDS ORDERED: LORAZEPAM 2MG/ML CPJ IV ONE (20:30)
[2020-10-25] MEDS ORDERED: PROPOFOL 10MG/ML 100ML 100 ML IV PRN (20:45)
[2020-10-25] MEDS ORDERED: FENTANYL CITRATE/PF 1,000 MCG in SODIUM CHLORIDE 0.9% 80 ML IV PRN (21:30)
[2020-10-25] MEDS ORDERED: FENTANYL CITRATE 2,500 MCG in SODIUM CHLORIDE 0.9% 200 ML IV PRN (21:45)
[2020-10-26] VITALS (126 sets, daily range): BP systolic 70–167; BP diastolic 22–110
[2020-10-26] MEDS: PROPOFOL 10MG/ML 100ML 100 ML IV PRN ×9 (02:34→21:36)
[2020-10-26 04:25] LABS: BG BASE EXCESS -0.8 mmol/L (-2.0-2.0); BG CARBOXYHEMOGLOBIN 0.3 % (0.5-1.5); BG DEOXYHEMOGLOBIN 1.1 % (0.0-5.0); BG FRACTION INSPIRED OXYGEN 40; BG HCO3 ACT 23.5 mmol/L (22.0-26.0); BG METHEMOGLOBIN 0.4 % (0.0-1.5); BG OXYGEN SATURATION 98.9 % (92.0-98.5); BG OXYHEMOGLOBIN 98.2 % (94.0-97.0); BG PCO2 37.5 mmHg (35.0-45.0); BG PH 7.415 (7.350-7.450); BG PO2 156.6 mmHg (75.0-100.0); BG SAMPLE SITE LEFT RADIAL; BG TOTAL HEMOGLOBIN 11.8 g/dL (12.0-18.0); BG VENT MODE VENT - AC
[2020-10-26] MEDS: SODIUM CHLORIDE 0.9% 1,000 ML IV SCH ×3 (05:43→15:16)
[2020-10-26 06:58] LABS: CHLORIDE 109 mEq/L (98-107)
[2020-10-26 06:59] LABS: EOSINOPHILS % 10.1 % (0.0-5.0); HEMATOCRIT. 31.7 % (36.0-48.0); HEMOGLOBIN. 10.7 g/dL (12.0-16.0); LYMPHOCYTES % 21.6 % (20.0-50.0); MEAN CORPUSCULAR HEMOGLOBIN 28.3 pg (28.0-32.0); MEAN CORPUSCULAR VOLUME 83.9 fL (81.0-99.0); MEAN PLATELET VOLUME 9.3 fl (7.4-10.4); MONOCYTES % 10.4 % (2.0-8.0); NEUTROPHILS % 56.9 % (40.0-76.0); PLATELET 273 x1000/uL (130-400); RED BLOOD CELL COUNT 3.78 mill/uL (4.2-5.4); RED CELL DISTRIBUTION WIDTH 16.7 % (11.6-14.6)
[2020-10-26 07:01] LABS: INR 1.1; PROTHROMBIN TIME 11.4 sec (9.6-11.0)
[2020-10-26 07:13] LABS: CREATINE KINASE 101 IU/L (26-192)
[2020-10-26] MEDS ORDERED: POTASSIUM CHLORIDE INJ 40 MEQ in DEXT 5% WATER 250 ML IV SCH (10:00)
[2020-10-26] MEDS ORDERED: LIDOCAINE HCL 1% 20ML VIAL (Pyxis) INJ ONE (11:06)
[2020-10-26] MEDS: LORAZEPAM 2MG/ML CPJ IV PRN (14:34)
[2020-10-26] MEDS: SUCRALFATE 1 G/10 ML UDC PO SCH ×2 (18:12→21:36)
[2020-10-26] MEDS: FENTANYL CITRATE/PF 2,500 MCG in SODIUM CHLORIDE 0.9% 200 ML IV PRN (19:31)
[2020-10-26] MEDS ORDERED: FAMOTIDINE 20MG TABLET PO SCH (21:00)
[2020-10-26] MEDS: ZOLPIDEM TARTRATE 5MG TABLET PO SCH (21:36)
[2020-10-26] MEDS: IPRATROPIUM/ALBUTEROL 0.5-3(2.5)MG/3ML NEB HHN SCH (22:00)
[2020-10-27] VITALS (90 sets, daily range): BP systolic 89–135; BP diastolic 44–85
[2020-10-27] MEDS: PROPOFOL 10MG/ML 100ML 100 ML IV PRN ×11 (00:08→21:18)
[2020-10-27] MEDS: SODIUM CHLORIDE 0.9% 1,000 ML IV SCH ×3 (03:13→20:05)
[2020-10-27 06:40] LABS: CHLORIDE 112 mEq/L (98-107)
[2020-10-27 06:42] LABS: BASOPHILS % 0.5 % (0.0-2.0); EOSINOPHILS % 9.8 % (0.0-5.0); HEMOGLOBIN. 10.5 g/dL (12.0-16.0); LYMPHOCYTES % 17.8 % (20.0-50.0); MEAN CORPUSCULAR HEMOGLOBIN 28.7 pg (28.0-32.0); MEAN PLATELET VOLUME 8.7 fl (7.4-10.4); MONOCYTES % 8.7 % (2.0-8.0); NEUTROPHILS % 63.2 % (40.0-76.0); PLATELET 252 x1000/uL (130-400); RED BLOOD CELL COUNT 3.64 mill/uL (4.2-5.4); RED CELL DISTRIBUTION WIDTH 16.8 % (11.6-14.6)
[2020-10-27 08:12] LABS: BG BASE EXCESS -3.9 mmol/L (-2.0-2.0); BG CARBOXYHEMOGLOBIN 0.3 % (0.5-1.5); BG DEOXYHEMOGLOBIN 0.8 % (0.0-5.0); BG HCO3 ACT 20.4 mmol/L (22.0-26.0); BG METHEMOGLOBIN 0.5 % (0.0-1.5); BG OXYGEN SATURATION 99.2 % (92.0-98.5); BG OXYHEMOGLOBIN 98.4 % (94.0-97.0); BG PCO2 34.2 mmHg (35.0-45.0); BG PH 7.393 (7.350-7.450); BG PO2 166.2 mmHg (75.0-100.0); BG SAMPLE SITE RIGHT RADIAL; BG TOTAL HEMOGLOBIN 11.3 g/dL (12.0-18.0); BG VENT MODE VENT - AC
[2020-10-27] MEDS: IPRATROPIUM/ALBUTEROL 0.5-3(2.5)MG/3ML NEB HHN SCH ×3 (08:16→16:10)
[2020-10-27] MEDS: PANTOPRAZOLE SODIUM 40 MG/VIAL IV SCH (08:50)
[2020-10-27] MEDS: SUCRALFATE 1 G/10 ML UDC PO SCH ×4 (08:50→20:43)
[2020-10-27] MEDS: LORAZEPAM 2MG/ML CPJ IV PRN ×3 (09:07→20:43)
[2020-10-27] MEDS ORDERED: PROPOFOL 10MG/ML 100ML 100 ML IV PRN (10:00)
[2020-10-27] MEDS: MIDAZOLAM HCL 100 MG in SODIUM CHLORIDE 0.9% 80 ML IV PRN ×2 (10:41→20:04)
[2020-10-27] MEDS: PHENYTOIN SODIUM 300 MG in SODIUM CHLORIDE 0.9% 50 ML IV SCH ×2 (12:22→20:43)
[2020-10-27] MEDS: FENTANYL CITRATE/PF 2,500 MCG in SODIUM CHLORIDE 0.9% 200 ML IV PRN (18:11)
[2020-10-27] MEDS: ZOLPIDEM TARTRATE 5MG TABLET PO SCH (20:43)
[2020-10-27] MEDS: LAMOTRIGINE 25MG TABLET PO SCH (20:49)
[2020-10-28] VITALS (96 sets, daily range): BP systolic 83–133; BP diastolic 45–89
[2020-10-28] MEDS: IPRATROPIUM/ALBUTEROL 0.5-3(2.5)MG/3ML NEB HHN SCH ×3 (00:14→16:18)
[2020-10-28] MEDS: PROPOFOL 10MG/ML 100ML 100 ML IV PRN ×8 (00:26→23:15)
[2020-10-28] MEDS: SODIUM CHLORIDE 0.9% 1,000 ML IV SCH ×2 (05:47→17:01)
[2020-10-28 07:21] LABS: BASOPHILS % 0.8 % (0.0-2.0); EOSINOPHILS % 9.8 % (0.0-5.0); HEMOGLOBIN. 9.1 g/dL (12.0-16.0); LYMPHOCYTES % 22.4 % (20.0-50.0); MEAN CORPUSCULAR HEMOGLOBIN 29.1 pg (28.0-32.0); MEAN CORPUSCULAR VOLUME 86.5 fL (81.0-99.0); MEAN PLATELET VOLUME 9.9 fl (7.4-10.4); MONOCYTES % 9.5 % (2.0-8.0); NEUTROPHILS % 57.5 % (40.0-76.0); PLATELET 186 x1000/uL (130-400); RED BLOOD CELL COUNT 3.13 mill/uL (4.2-5.4); RED CELL DISTRIBUTION WIDTH 16.9 % (11.6-14.6)
[2020-10-28 07:41] LABS: CHLORIDE 113 mEq/L (98-107)
[2020-10-28] MEDS: PANTOPRAZOLE SODIUM 40 MG/VIAL IV SCH (08:47)
[2020-10-28] MEDS: SUCRALFATE 1 G/10 ML UDC PO SCH ×4 (08:47→21:29)
[2020-10-28] MEDS ORDERED: PHENYTOIN SODIUM 100MG/2ML VIAL IV ONE (08:54)
[2020-10-28] MEDS: LAMOTRIGINE 25MG TABLET PO SCH ×2 (08:55→21:33)
[2020-10-28] MEDS: PHENYTOIN SODIUM 300 MG in SODIUM CHLORIDE 0.9% 50 ML IV SCH ×2 (08:56→21:29)
[2020-10-28] MEDS: LORAZEPAM 2MG/ML CPJ IV PRN (09:36)
[2020-10-28] MEDS ORDERED: KCL 20MEQ/100ML PREMIX 100 ML IV ONE ×2 (10:30→12:30)
[2020-10-28] MEDS ORDERED: POTASSIUM CHLORIDE INJ 40 MEQ in DEXT 5% WATER 250 ML IV SCH (11:00)
[2020-10-28] MEDS ORDERED: MAGNESIUM 2 G PREMIX 50 ML IV SCH (11:00)
[2020-10-28 11:12] LABS: BG BASE EXCESS -3.6 mmol/L (-2.0-2.0); BG CARBOXYHEMOGLOBIN 0.3 % (0.5-1.5); BG DEOXYHEMOGLOBIN 1.7 % (0.0-5.0); BG FRACTION INSPIRED OXYGEN 30; BG HCO3 ACT 19.5 mmol/L (22.0-26.0); BG METHEMOGLOBIN 0.2 % (0.0-1.5); BG OXYGEN SATURATION 98.3 % (92.0-98.5); BG OXYHEMOGLOBIN 97.8 % (94.0-97.0); BG PCO2 28.7 mmHg (35.0-45.0); BG PO2 123.7 mmHg (75.0-100.0); BG SAMPLE SITE RIGHT RADIAL; BG TOTAL HEMOGLOBIN 9.8 g/dL (12.0-18.0); BG VENT MODE VENT - AC
[2020-10-28] MEDS: FENTANYL CITRATE/PF 2,500 MCG in SODIUM CHLORIDE 0.9% 200 ML IV PRN (12:22)
[2020-10-28] MEDS: MIDAZOLAM HCL 100 MG in SODIUM CHLORIDE 0.9% 80 ML IV PRN (16:00)
[2020-10-28] MEDS: ZOLPIDEM TARTRATE 5MG TABLET PO SCH (21:29)
[2020-10-29] VITALS (97 sets, daily range): BP systolic 84–140; BP diastolic 41–95
[2020-10-29] MEDS: FENTANYL CITRATE/PF 2,500 MCG in SODIUM CHLORIDE 0.9% 200 ML IV PRN ×2 (01:51→17:42)
[2020-10-29] MEDS: SODIUM CHLORIDE 0.9% 1,000 ML IV SCH ×3 (03:10→23:29)
[2020-10-29] MEDS: PROPOFOL 10MG/ML 100ML 100 ML IV PRN ×6 (03:35→21:20)
[2020-10-29 05:50] LABS: BASOPHILS % 0.7 % (0.0-2.0); HEMATOCRIT. 29.6 % (36.0-48.0); HEMOGLOBIN. 9.5 g/dL (12.0-16.0); LYMPHOCYTES % 22.2 % (20.0-50.0); MEAN CORPUSCULAR HEMOGLOBIN 28.6 pg (28.0-32.0); MEAN CORPUSCULAR VOLUME 89.4 fL (81.0-99.0); MEAN PLATELET VOLUME 8.9 fl (7.4-10.4); MONOCYTES % 10.2 % (2.0-8.0); NEUTROPHILS % 57.9 % (40.0-76.0); PLATELET 204 x1000/uL (130-400); RED BLOOD CELL COUNT 3.31 mill/uL (4.2-5.4); RED CELL DISTRIBUTION WIDTH 17.2 % (11.6-14.6)
[2020-10-29 05:54] LABS: CHLORIDE 117 mEq/L (98-107)
[2020-10-29] MEDS: IPRATROPIUM/ALBUTEROL 0.5-3(2.5)MG/3ML NEB HHN SCH ×4 (06:00→16:49)
[2020-10-29] MEDS: LAMOTRIGINE 25MG TABLET PO SCH ×3 (08:40→21:16)
[2020-10-29] MEDS: SUCRALFATE 1 G/10 ML UDC PO SCH ×4 (08:40→21:09)
[2020-10-29] MEDS: PANTOPRAZOLE SODIUM 40 MG/VIAL IV SCH (08:40)
[2020-10-29] MEDS ORDERED: PHENYTOIN SODIUM 100MG/2ML VIAL IV ONE (08:42)
[2020-10-29] MEDS: PHENYTOIN SODIUM 300 MG in SODIUM CHLORIDE 0.9% 50 ML IV SCH ×2 (09:10→21:09)
[2020-10-29 09:18] LABS: BG BASE EXCESS -3.5 mmol/L (-2.0-2.0); BG CARBOXYHEMOGLOBIN 0.4 % (0.5-1.5); BG DEOXYHEMOGLOBIN 3.1 % (0.0-5.0); BG FRACTION INSPIRED OXYGEN 30; BG HCO3 ACT 21.5 mmol/L (22.0-26.0); BG METHEMOGLOBIN 0.1 % (0.0-1.5); BG OXYGEN SATURATION 96.9 % (92.0-98.5); BG OXYHEMOGLOBIN 96.4 % (94.0-97.0); BG PCO2 38.5 mmHg (35.0-45.0); BG PH 7.365 (7.350-7.450); BG PO2 95.2 mmHg (75.0-100.0); BG SAMPLE SITE RIGHT RADIAL; BG TOTAL HEMOGLOBIN 10.7 g/dL (12.0-18.0); BG VENT MODE VENT - AC
[2020-10-29] MEDS: MIDAZOLAM HCL 100 MG in SODIUM CHLORIDE 0.9% 80 ML IV PRN (09:23)
[2020-10-29] MEDS: LORAZEPAM 2MG/ML CPJ IV PRN (09:24)
[2020-10-29] MEDS: ZOLPIDEM TARTRATE 5MG TABLET PO SCH (21:09)
[2020-10-30] VITALS (95 sets, daily range): BP systolic 77–117; BP diastolic 42–84
[2020-10-30] MEDS: IPRATROPIUM/ALBUTEROL 0.5-3(2.5)MG/3ML NEB HHN SCH ×3 (00:18→15:40)
[2020-10-30] MEDS: PROPOFOL 10MG/ML 100ML 100 ML IV PRN ×7 (00:54→22:21)
[2020-10-30] MEDS: MIDAZOLAM HCL 100 MG in SODIUM CHLORIDE 0.9% 80 ML IV PRN ×2 (05:11→18:57)
[2020-10-30] MEDS: FENTANYL CITRATE/PF 2,500 MCG in SODIUM CHLORIDE 0.9% 200 ML IV PRN ×2 (05:41→18:56)
[2020-10-30 05:57] LABS: BASOPHILS % 0.6 % (0.0-2.0); EOSINOPHILS % 7.4 % (0.0-5.0); HEMATOCRIT. 30.2 % (36.0-48.0); HEMOGLOBIN. 9.8 g/dL (12.0-16.0); LYMPHOCYTES % 17.9 % (20.0-50.0); MEAN CORPUSCULAR HEMOGLOBIN 28.2 pg (28.0-32.0); MEAN CORPUSCULAR VOLUME 87.3 fL (81.0-99.0); MEAN PLATELET VOLUME 9.2 fl (7.4-10.4); NEUTROPHILS % 63.1 % (40.0-76.0); PLATELET 211 x1000/uL (130-400); RED BLOOD CELL COUNT 3.46 mill/uL (4.2-5.4)
[2020-10-30 06:02] LABS: CHLORIDE 114 mEq/L (98-107)
[2020-10-30] MEDS: SUCRALFATE 1 G/10 ML UDC PO SCH ×4 (08:46→22:07)
[2020-10-30] MEDS: PANTOPRAZOLE SODIUM 40 MG/VIAL IV SCH (08:46)
[2020-10-30] MEDS: LAMOTRIGINE 25MG TABLET PO SCH ×2 (08:46→22:07)
[2020-10-30] MEDS: PHENYTOIN SODIUM 300 MG in SODIUM CHLORIDE 0.9% 50 ML IV SCH ×2 (08:46→22:20)
[2020-10-30] MEDS: SODIUM CHLORIDE 0.9% 1,000 ML IV SCH ×2 (08:47→18:58)
[2020-10-30 09:18] LABS: BG BASE EXCESS -2.9 mmol/L (-2.0-2.0); BG CARBOXYHEMOGLOBIN 0.3 % (0.5-1.5); BG DEOXYHEMOGLOBIN 1.9 % (0.0-5.0); BG FRACTION INSPIRED OXYGEN 30; BG HCO3 ACT 20.5 mmol/L (22.0-26.0); BG METHEMOGLOBIN 0.4 % (0.0-1.5); BG OXYGEN SATURATION 98.1 % (92.0-98.5); BG OXYHEMOGLOBIN 97.4 % (94.0-97.0); BG PCO2 30.9 mmHg (35.0-45.0); BG PH 7.439 (7.350-7.450); BG PO2 112.7 mmHg (75.0-100.0); BG SAMPLE SITE RIGHT RADIAL; BG TOTAL HEMOGLOBIN 10.4 g/dL (12.0-18.0); BG VENT MODE VENT - AC
[2020-10-30] MEDS: ARIPIPRAZOLE 5MG TABLET PO SCH (16:56)
[2020-10-30] MEDS: METHYLPREDNISOLONE SOD SUCC 40 MG/ML VIAL IV SCH (16:56)
[2020-10-30] MEDS ORDERED: PHENYTOIN SODIUM 100MG/2ML VIAL IV ONE (21:26)
[2020-10-31] VITALS (59 sets, daily range): BP systolic 93–124; BP diastolic 41–82
[2020-10-31] MEDS: SODIUM CHLORIDE 0.9% 1,000 ML IV SCH ×3 (00:05→20:04)
[2020-10-31] MEDS: NYSTATIN POWDER 15GM TOP SCH ×3 (01:25→16:48)
[2020-10-31] MEDS: PROPOFOL 10MG/ML 100ML 100 ML IV PRN ×5 (02:08→21:37)
[2020-10-31] MEDS: METHYLPREDNISOLONE SOD SUCC 40 MG/ML VIAL IV SCH ×3 (02:17→16:49)
[2020-10-31] MEDS: MIDAZOLAM HCL 100 MG in SODIUM CHLORIDE 0.9% 80 ML IV PRN ×2 (04:12→16:52)
[2020-10-31 06:18] LABS: BASOPHILS % 0.3 % (0.0-2.0); HEMATOCRIT. 34.1 % (36.0-48.0); HEMOGLOBIN. 11.3 g/dL (12.0-16.0); LYMPHOCYTES % 10.5 % (20.0-50.0); MEAN CORPUSCULAR HEMOGLOBIN 28.2 pg (28.0-32.0); MEAN PLATELET VOLUME 8.8 fl (7.4-10.4); MONOCYTES % 3.1 % (2.0-8.0); NEUTROPHILS % 86.1 % (40.0-76.0); PLATELET 235 x1000/uL (130-400); RED BLOOD CELL COUNT 4.01 mill/uL (4.2-5.4); RED CELL DISTRIBUTION WIDTH 16.7 % (11.6-14.6)
[2020-10-31 06:22] LABS: CHLORIDE 115 mEq/L (98-107)
[2020-10-31] MEDS: IPRATROPIUM/ALBUTEROL 0.5-3(2.5)MG/3ML NEB HHN SCH ×3 (08:35→16:25)
[2020-10-31 08:46] LABS: BG BASE EXCESS -1.1 mmol/L (-2.0-2.0); BG CARBOXYHEMOGLOBIN 0.1 % (0.5-1.5); BG FRACTION INSPIRED OXYGEN 30; BG METHEMOGLOBIN 0.3 % (0.0-1.5); BG OXYHEMOGLOBIN 95.6 % (94.0-97.0); BG PCO2 54.6 mmHg (35.0-45.0); BG PH 7.295 (7.350-7.450); BG PO2 88.6 mmHg (75.0-100.0); BG SAMPLE SITE RIGHT RADIAL; BG TOTAL HEMOGLOBIN 11.4 g/dL (12.0-18.0); BG VENT MODE VENT - AC
[2020-10-31] MEDS: FENTANYL CITRATE/PF 2,500 MCG in SODIUM CHLORIDE 0.9% 200 ML IV PRN ×2 (09:20→20:24)
[2020-10-31] MEDS: PANTOPRAZOLE SODIUM 40 MG/VIAL IV SCH (10:28)
[2020-10-31] MEDS: LAMOTRIGINE 25MG TABLET PO SCH ×2 (10:28→21:38)
[2020-10-31] MEDS: ARIPIPRAZOLE 5MG TABLET PO SCH ×2 (10:28→16:49)
[2020-10-31] MEDS: PHENYTOIN SODIUM 300 MG in SODIUM CHLORIDE 0.9% 50 ML IV SCH ×2 (10:28→21:38)
[2020-10-31] MEDS: SUCRALFATE 1 G/10 ML UDC PO SCH ×4 (10:28→21:37)
[2020-10-31] MEDS ORDERED: SODIUM POLYSTYRENE SULFONATE 15 G/60 ML BOT PO NR (11:30)
[2020-10-31] MEDS: POLYETHYLENE GLYCOL 3350 (17GM) 1 DOSE PACK PO SCH (17:27)
[2020-10-31] MEDS ORDERED: ENOXAPARIN 40MG/0.4ML SYR SUBCUT SCH (18:00)
[2020-11-01] VITALS (49 sets, daily range): BP systolic 108–195; BP diastolic 21–101
[2020-11-01] MEDS: METHYLPREDNISOLONE SOD SUCC 40 MG/ML VIAL IV SCH ×2 (00:14→08:46)
[2020-11-01] MEDS: PROPOFOL 10MG/ML 100ML 100 ML IV PRN ×2 (00:51→04:53)
[2020-11-01] MEDS: MIDAZOLAM HCL 100 MG in SODIUM CHLORIDE 0.9% 80 ML IV PRN (03:07)
[2020-11-01] MEDS: SODIUM CHLORIDE 0.9% 1,000 ML IV SCH ×2 (06:03→17:15)
[2020-11-01 06:33] LABS: BASOPHILS % 0.6 % (0.0-2.0); HEMATOCRIT. 28.9 % (36.0-48.0); HEMOGLOBIN. 9.7 g/dL (12.0-16.0); LYMPHOCYTES % 10.2 % (20.0-50.0); MEAN CORPUSCULAR HEMOGLOBIN 28.4 pg (28.0-32.0); MEAN CORPUSCULAR VOLUME 85.1 fL (81.0-99.0); MONOCYTES % 7.5 % (2.0-8.0); NEUTROPHILS % 81.7 % (40.0-76.0); PLATELET 267 x1000/uL (130-400); RED CELL DISTRIBUTION WIDTH 16.8 % (11.6-14.6)
[2020-11-01 06:58] LABS: CHLORIDE 113 mEq/L (98-107)
[2020-11-01 08:38] LABS: BG BASE EXCESS -1.5 mmol/L (-2.0-2.0); BG CARBOXYHEMOGLOBIN 0.3 % (0.5-1.5); BG DEOXYHEMOGLOBIN 1.2 % (0.0-5.0); BG FRACTION INSPIRED OXYGEN 30; BG HCO3 ACT 22.4 mmol/L (22.0-26.0); BG METHEMOGLOBIN 0.3 % (0.0-1.5); BG OXYGEN SATURATION 98.8 % (92.0-98.5); BG OXYHEMOGLOBIN 98.2 % (94.0-97.0); BG PCO2 34.8 mmHg (35.0-45.0); BG PH 7.427 (7.350-7.450); BG PO2 135.5 mmHg (75.0-100.0); BG SAMPLE SITE RIGHT RADIAL; BG TOTAL HEMOGLOBIN 10.7 g/dL (12.0-18.0); BG VENT MODE VENT - AC
[2020-11-01] MEDS: NYSTATIN POWDER 15GM TOP SCH ×2 (08:46→17:12)
[2020-11-01] MEDS: PANTOPRAZOLE SODIUM 40 MG/VIAL IV SCH (08:46)
[2020-11-01] MEDS: PHENYTOIN SODIUM 300 MG in SODIUM CHLORIDE 0.9% 50 ML IV SCH (08:47)
[2020-11-01] MEDS: FENTANYL CITRATE/PF 2,500 MCG in SODIUM CHLORIDE 0.9% 200 ML IV PRN (08:49)
[2020-11-01] MEDS: ARIPIPRAZOLE 5MG TABLET PO SCH ×2 (08:49→17:12)
[2020-11-01] MEDS: SUCRALFATE 1 G/10 ML UDC PO SCH ×4 (08:49→21:53)
[2020-11-01] MEDS: POLYETHYLENE GLYCOL 3350 (17GM) 1 DOSE PACK PO SCH (08:50)
[2020-11-01] MEDS: LAMOTRIGINE 25MG TABLET PO SCH ×2 (08:50→21:54)
[2020-11-01] MEDS ORDERED: CEFEPIME 1,000 MG in DEXTROSE 5% WATER 50 ML IV SCH (09:00)
[2020-11-01] MEDS ORDERED: FUROSEMIDE 40MG/4ML VIAL IVP SCH (09:00)
[2020-11-01] MEDS: IPRATROPIUM/ALBUTEROL 0.5-3(2.5)MG/3ML NEB HHN SCH (09:06)
[2020-11-01] MEDS ORDERED: MIDAZOLAM HCL 100 MG in SODIUM CHLORIDE 0.9% 100 ML IV PRN (10:00)
[2020-11-01] MEDS ORDERED: MIDAZOLAM 100MG/100ML PMX 100 ML IV PRN (10:00)
[2020-11-01] MEDS: CEFEPIME 2,000 MG in DEXT 5% WATER 100 ML IV SCH ×2 (11:03→21:56)
[2020-11-01 12:50] LABS: BG BASE EXCESS -0.1 mmol/L (-2.0-2.0); BG CARBOXYHEMOGLOBIN 0.2 % (0.5-1.5); BG FRACTION INSPIRED OXYGEN 100; BG HCO3 ACT 27.5 mmol/L (22.0-26.0); BG METHEMOGLOBIN 0.3 % (0.0-1.5); BG OXYHEMOGLOBIN 92.5 % (94.0-97.0); BG PCO2 59.4 mmHg (35.0-45.0); BG PH 7.284 (7.350-7.450); BG PO2 73.7 mmHg (75.0-100.0); BG SAMPLE SITE RIGHT RADIAL; BG TOTAL HEMOGLOBIN 12.1 g/dL (12.0-18.0); BG VENT MODE MASK - NRB
[2020-11-01] MEDS: LORAZEPAM 2MG/ML CPJ IV PRN (13:01)
[2020-11-01] MEDS: RACEPINEPHRINE 2.25% 0.5ML NEB VIAL HHN PRN ×2 (13:03→16:35)
[2020-11-01] MEDS: IPRATROPIUM/ALBUTEROL 0.5-3(2.5)MG/3ML NEB HHN PRN ×2 (13:03→16:34)
[2020-11-01] MEDS ORDERED: RACEPINEPHRINE 2.25% 0.5ML NEB VIAL ONE (13:04)
[2020-11-01] MEDS ORDERED: METHYLPREDNISOLONE SOD SUCC 125 MG/2 ML VIAL IV SCH (14:00)
[2020-11-01] MEDS: METHYLPREDNISOLONE SOD SUCC 125 MG/2 ML VIAL IV SCH (17:12)
[2020-11-01] MEDS: ENOXAPARIN 30MG/0.3ML SYR SUBCUT SCH ×2 (21:00→21:54)
[2020-11-01] MEDS: HYDROXYZINE 10 MG TABLET PO SCH (21:54)
[2020-11-01] MEDS: PHENYTOIN SODIUM EXTENDED 100MG CAPSULE PO SCH (21:54)
[2020-11-02] VITALS (48 sets, daily range): BP systolic 99–155; BP diastolic 41–118
[2020-11-02] MEDS: IPRATROPIUM/ALBUTEROL 0.5-3(2.5)MG/3ML NEB HHN SCH ×3 (00:18→16:49)
[2020-11-02] MEDS: METHYLPREDNISOLONE SOD SUCC 125 MG/2 ML VIAL IV SCH ×5 (00:35→23:56)
[2020-11-02] MEDS: LORAZEPAM 2MG/ML CPJ IV PRN ×5 (00:36→21:41)
[2020-11-02 06:25] LABS: BASOPHILS % 0.1 % (0.0-2.0); HEMATOCRIT. 25.4 % (36.0-48.0); HEMOGLOBIN. 8.3 g/dL (12.0-16.0); LYMPHOCYTES % 7.7 % (20.0-50.0); MEAN CORPUSCULAR HEMOGLOBIN 27.6 pg (28.0-32.0); MEAN PLATELET VOLUME 8.6 fl (7.4-10.4); MONOCYTES % 10.8 % (2.0-8.0); NEUTROPHILS % 81.4 % (40.0-76.0); PLATELET 302 x1000/uL (130-400); RED BLOOD CELL COUNT 2.99 mill/uL (4.2-5.4); RED CELL DISTRIBUTION WIDTH 16.6 % (11.6-14.6)
[2020-11-02 06:26] LABS: CHLORIDE 116 mEq/L (98-107)
[2020-11-02] MEDS: SODIUM CHLORIDE 0.9% 1,000 ML IV SCH (06:53)
[2020-11-02] MEDS: SUCRALFATE 1 G/10 ML UDC PO SCH ×4 (06:54→20:25)
[2020-11-02] MEDS: PHENYTOIN 100 MG/4 ML UDC GT SCH ×2 (08:56→20:25)
[2020-11-02] MEDS: LAMOTRIGINE 25MG TABLET PO SCH ×2 (08:57→20:26)
[2020-11-02] MEDS: CEFEPIME 2,000 MG in DEXT 5% WATER 100 ML IV SCH ×2 (08:58→20:25)
[2020-11-02] MEDS: ARIPIPRAZOLE 5MG TABLET PO SCH ×4 (08:58→17:40)
[2020-11-02] MEDS: ENOXAPARIN 30MG/0.3ML SYR SUBCUT SCH ×2 (09:00→20:08)
[2020-11-02] MEDS: POLYETHYLENE GLYCOL 3350 (17GM) 1 DOSE PACK PO SCH (09:00)
[2020-11-02] MEDS: PANTOPRAZOLE SODIUM 40 MG/VIAL IV SCH (10:37)
[2020-11-02] MEDS: NYSTATIN POWDER 15GM TOP SCH ×2 (11:29→17:30)
[2020-11-02 11:32] LABS: BG BASE EXCESS 2.8 mmol/L (-2.0-2.0); BG CARBOXYHEMOGLOBIN 0.2 % (0.5-1.5); BG DEOXYHEMOGLOBIN 8.2 % (0.0-5.0); BG HCO3 ACT 26.6 mmol/L (22.0-26.0); BG METHEMOGLOBIN 0.3 % (0.0-1.5); BG OXYGEN SATURATION 91.8 % (92.0-98.5); BG OXYHEMOGLOBIN 91.3 % (94.0-97.0); BG PCO2 37.9 mmHg (35.0-45.0); BG PH 7.464 (7.350-7.450); BG PO2 56.8 mmHg (75.0-100.0); BG SAMPLE SITE LEFT RADIAL; BG TOTAL HEMOGLOBIN 10.9 g/dL (12.0-18.0); BG VENT MODE ROOM AIR
[2020-11-02] MEDS ORDERED: POTASSIUM CHLORIDE 20MEQ TABLET SR PO NR (12:15)
[2020-11-02] MEDS: GUAIFENESIN/DM 600MG/30MG ER TAB 12HR PO SCH (14:26)
[2020-11-02] MEDS ORDERED: NALOXONE HCL 0.4MG/ML VIAL IV PRN (17:00)
[2020-11-02] MEDS: ONDANSETRON HCL 4MG/2ML INJ IV PRN (17:43)
[2020-11-02] MEDS: PHENYTOIN SODIUM EXTENDED 100MG CAPSULE PO SCH (20:26)
[2020-11-02] MEDS: HYDROXYZINE 10 MG TABLET PO SCH (20:27)
[2020-11-02] MEDS: POLYVINYL ALCOHOL OPHTH DROPS 15ML BOTHEYE SCH (23:42)
[2020-11-03] VITALS (66 sets, daily range): BP systolic 84–140; BP diastolic 13–92
[2020-11-03] MEDS: IPRATROPIUM/ALBUTEROL 0.5-3(2.5)MG/3ML NEB HHN SCH ×4 (00:22→17:50)
[2020-11-03] MEDS: GUAIFENESIN/DM 600MG/30MG ER TAB 12HR PO SCH ×2 (02:15→13:20)
[2020-11-03] MEDS: METHYLPREDNISOLONE SOD SUCC 125 MG/2 ML VIAL IV SCH ×3 (05:54→17:19)
[2020-11-03] MEDS: POLYVINYL ALCOHOL OPHTH DROPS 15ML BOTHEYE SCH ×3 (05:54→17:20)
[2020-11-03] MEDS: ENOXAPARIN 30MG/0.3ML SYR SUBCUT SCH ×2 (09:00→21:02)
[2020-11-03] MEDS: POLYETHYLENE GLYCOL 3350 (17GM) 1 DOSE PACK PO SCH (09:00)
[2020-11-03] MEDS: LAMOTRIGINE 25MG TABLET PO SCH ×2 (09:08→21:03)
[2020-11-03] MEDS: PANTOPRAZOLE SODIUM 40 MG/VIAL IV SCH (09:08)
[2020-11-03] MEDS: CEFEPIME 2,000 MG in DEXT 5% WATER 100 ML IV SCH ×2 (09:08→20:57)
[2020-11-03] MEDS: NYSTATIN POWDER 15GM TOP SCH ×2 (09:09→17:20)
[2020-11-03] MEDS: SUCRALFATE 1 G/10 ML UDC PO SCH ×5 (09:09→21:02)
[2020-11-03] MEDS: PHENYTOIN 100 MG/4 ML UDC GT SCH ×2 (09:12→21:02)
[2020-11-03 09:56] LABS: BASOPHILS % 0.2 % (0.0-2.0); CHLORIDE 105 mEq/L (98-107); EOSINOPHILS % 0.1 % (0.0-5.0); HEMATOCRIT. 32.6 % (36.0-48.0); HEMOGLOBIN. 10.9 g/dL (12.0-16.0); LYMPHOCYTES % 14.9 % (20.0-50.0); MEAN CORPUSCULAR HEMOGLOBIN 29.4 pg (28.0-32.0); MEAN CORPUSCULAR VOLUME 87.5 fL (81.0-99.0); MEAN PLATELET VOLUME 7.9 fl (7.4-10.4); MONOCYTES % 6.2 % (2.0-8.0); NEUTROPHILS % 78.6 % (40.0-76.0); PLATELET 415 x1000/uL (130-400); RED BLOOD CELL COUNT 3.72 mill/uL (4.2-5.4); RED CELL DISTRIBUTION WIDTH 16.3 % (11.6-14.6)
[2020-11-03] MEDS ORDERED: POTASSIUM CHLORIDE 20MEQ TABLET SR PO SCH (12:30)
[2020-11-03] MEDS: ONDANSETRON HCL 4MG/2ML INJ IV PRN (17:19)
[2020-11-03] MEDS ORDERED: PHENYTOIN 100 MG/4 ML UDC GT SCH (21:00)
[2020-11-03] MEDS: HYDROCODONE/ACETAMINOPHEN 5/325MG TABLET PO PRN (21:03)
[2020-11-03] MEDS: HYDROXYZINE 10 MG TABLET PO SCH (21:03)
[2020-11-04] VITALS (37 sets, daily range): BP systolic 92–155; BP diastolic 32–88
[2020-11-04] MEDS: METHYLPREDNISOLONE SOD SUCC 125 MG/2 ML VIAL IV SCH ×4 (00:38→21:38)
[2020-11-04] MEDS: POLYVINYL ALCOHOL OPHTH DROPS 15ML BOTHEYE SCH ×5 (00:39→18:04)
[2020-11-04] MEDS: GUAIFENESIN/DM 600MG/30MG ER TAB 12HR PO SCH ×3 (02:15→13:26)
[2020-11-04] MEDS: SUCRALFATE 1 G/10 ML UDC PO SCH ×5 (07:28→21:37)
[2020-11-04] MEDS: LORAZEPAM 2MG/ML CPJ IV PRN ×4 (07:28→22:18)
[2020-11-04] MEDS: IPRATROPIUM/ALBUTEROL 0.5-3(2.5)MG/3ML NEB HHN SCH (08:20)
[2020-11-04] MEDS: PHENYTOIN 100 MG/4 ML UDC GT SCH ×2 (08:48→20:38)
[2020-11-04] MEDS: POLYETHYLENE GLYCOL 3350 (17GM) 1 DOSE PACK PO SCH (08:48)
[2020-11-04] MEDS: LAMOTRIGINE 25MG TABLET PO SCH ×2 (08:48→21:38)
[2020-11-04] MEDS: ENOXAPARIN 30MG/0.3ML SYR SUBCUT SCH ×2 (08:48→21:37)
[2020-11-04] MEDS: CEFEPIME 2,000 MG in DEXT 5% WATER 100 ML IV SCH ×2 (08:48→21:38)
[2020-11-04] MEDS: ARIPIPRAZOLE 5MG TABLET PO SCH ×2 (08:48→18:04)
[2020-11-04] MEDS: NYSTATIN POWDER 15GM TOP SCH ×2 (08:49→17:00)
[2020-11-04] MEDS: HYDROCODONE/ACETAMINOPHEN 5/325MG TABLET PO PRN (21:37)
[2020-11-04] MEDS: HYDROXYZINE 10 MG TABLET PO SCH (21:38)
[2020-11-04] MEDS: ONDANSETRON HCL 4MG/2ML INJ IV PRN (22:08)
[2020-11-05] VITALS (9 sets, daily range): BP systolic 110–127; BP diastolic 51–73
[2020-11-05] MEDS: GUAIFENESIN/DM 600MG/30MG ER TAB 12HR PO SCH ×2 (02:15→16:17)
[2020-11-05] MEDS: POLYVINYL ALCOHOL OPHTH DROPS 15ML BOTHEYE SCH ×4 (06:36→17:29)
[2020-11-05] MEDS: METHYLPREDNISOLONE SOD SUCC 125 MG/2 ML VIAL IV SCH ×2 (06:36→16:17)
[2020-11-05] MEDS: SUCRALFATE 1 G/10 ML UDC PO SCH ×4 (06:36→20:07)
[2020-11-05] MEDS: LORAZEPAM 2MG/ML CPJ IV PRN ×4 (07:07→16:18)
[2020-11-05] MEDS: POLYETHYLENE GLYCOL 3350 (17GM) 1 DOSE PACK PO SCH (08:36)
[2020-11-05] MEDS: ENOXAPARIN 30MG/0.3ML SYR SUBCUT SCH (08:36)
[2020-11-05] MEDS: CEFEPIME 2,000 MG in DEXT 5% WATER 100 ML IV SCH (08:36)
[2020-11-05] MEDS: NYSTATIN POWDER 15GM TOP SCH ×2 (08:36→16:16)
[2020-11-05] MEDS: PHENYTOIN 100 MG/4 ML UDC GT SCH ×2 (08:36→20:07)
[2020-11-05] MEDS: ARIPIPRAZOLE 5MG TABLET PO SCH ×2 (08:37→16:17)
[2020-11-05] MEDS: LAMOTRIGINE 25MG TABLET PO SCH ×2 (08:37→20:07)
[2020-11-05 10:10] LABS: HEMOGLOBIN. 11.1 g/dL (12.0-16.0); MEAN CORPUSCULAR HEMOGLOBIN 27.5 pg (28.0-32.0); MEAN CORPUSCULAR VOLUME 84.5 fL (81.0-99.0); MEAN PLATELET VOLUME 7.8 fl (7.4-10.4); PLATELET 626 x1000/uL (130-400); RED BLOOD CELL COUNT 4.02 mill/uL (4.2-5.4); RED CELL DISTRIBUTION WIDTH 16.2 % (11.6-14.6)
[2020-11-05 10:17] LABS: CHLORIDE 104 mEq/L (98-107)
[2020-11-05] MEDS ORDERED: POTASSIUM CHLORIDE 20MEQ TABLET SR PO NR (12:15)
[2020-11-05 16:22] LABS: PLATELET ESTIMATE INCREASED
[2020-11-05] MEDS: ONDANSETRON HCL 4MG/2ML INJ IV PRN (20:14)
[2020-11-06] MEDS ORDERED: ENOXAPARIN 40MG/0.4ML SYR SUBCUT SCH (09:00)
[2020-11-15] MEDS ORDERED: VALP250C3 PO (16:33)
[2020-11-15] MEDS ORDERED: ABIL5 PO (16:33)
[2020-11-15] MEDS ORDERED: LAM1 PO (16:33)
[2020-11-15] MEDS ORDERED: ZONI100C34 PO (16:33)
== END 2020-11-05 21:52 | DRG 817 ==
LOC: ER 14:53 → MICUSO 23:05 → CVICU 10-23 05:36 → MICUSO 10-23 05:53 → EDBEDREQTM 10-23 21:25 → EDBEDREQSVC 10-23 21:25 → MICUNO 10-23 22:32 → MICUSO 10-23 22:32 → EDBEDREQSVC 10-25 22:47 → CVICU 10-25 23:12 → 7EST 11-04 10:43
PROVIDERS: ADMIT Internal Medicine; ATTEND Internal Medicine
PROC: B54BZZA Ultrasonography of Right Lower Extremity Veins, Guidance (ICD-10-PCS; 2020-10-22)
PROC: 06HY33Z Insertion of Infusion Device into Lower Vein, Percutaneous Approach (ICD-10-PCS; 2020-10-22)
PROC: 0BH17EZ Insertion of Endotracheal Airway into Trachea, Via Natural or Artificial Opening (ICD-10-PCS; 2020-10-22)
PROC: 5A1935Z Respiratory Ventilation, Less than 24 Consecutive Hours (ICD-10-PCS; 2020-10-22)
PROC: 5A1955Z Respiratory Ventilation, Greater than 96 Consecutive Hours (ICD-10-PCS; principal; 2020-10-26)
PROC: 0BH17EZ Insertion of Endotracheal Airway into Trachea, Via Natural or Artificial Opening (ICD-10-PCS; 2020-10-26)
PROC: 02HV33Z Insertion of Infusion Device into Superior Vena Cava, Percutaneous Approach (ICD-10-PCS; 2020-10-26)
PROC: B548ZZA Ultrasonography of Superior Vena Cava, Guidance (ICD-10-PCS; 2020-10-26)
PROC: 4A10X4Z Monitoring of Central Nervous Electrical Activity, External Approach (ICD-10-PCS; 2020-10-28)
DX: T43.592A Poisoning by other antipsychotics and neuroleptics, intentional self-harm, initial encounter (principal); J96.01 Acute respiratory failure with hypoxia; G40.401 Other generalized epilepsy and epileptic syndromes, not intractable, with status epilepticus; K92.0 Hematemesis; E87.6 Hypokalemia; K29.70 Gastritis, unspecified, without bleeding; N39.0 Urinary tract infection, site not specified; E66.9 Obesity, unspecified; F25.9 Schizoaffective disorder, unspecified; D64.9 Anemia, unspecified; E87.5 Hyperkalemia; F60.3 Borderline personality disorder; F32.9 Major depressive disorder, single episode, unspecified; Z20.822 Contact with and (suspected) exposure to COVID-19; Z91.5 Personal history of self-harm; Z68.29 Body mass index [BMI] 29.0-29.9, adult; Z78.1 Physical restraint status; Z82.49 Family history of ischemic heart disease and other diseases of the circulatory system; Z91.14 Patient's other noncompliance with medication regimen; Z22.322 Carrier or suspected carrier of Methicillin resistant Staphylococcus aureus; Z88.8 Allergy status to other drugs, medicaments and biological substances; Z91.018 Allergy to other foods; Y92.89 Other specified places as the place of occurrence of the external cause
CPT/HCPCS: 31500; 36415; 36600; 70551; 71045; 76937; 80048; 80053; 80061; 80165; 80185; 80305; 80307; 80320; 80329; 81003; 82375; 82550; 82805; 83735; 84132; 84443; 84478; 84703; 85025; 87070; 87426; 92610; 93005; 93923; 93970; 94002; 94003; 94640; 95816; 99291; C1725; C9113; J0330; J0692; J0696; J1165; J1200; J1630; J1650; J1940; J2060; J2250; J2270; J2405; J2704; J2920; J2930; J3010; J3475; J3480; J3490; J7030; J7040; J7050; J7060; G0480

== ENCOUNTER 2020-11-08 11:48 | Inpatient (IN) | payer MEDICAID ==
[~2020-11-08] VITALS: Ht 170.2 cm; Wt 79.5 kg
[~2020-11-08 11:48] MED LIST changes: -ETOMIDATE 2MG/ML 10ML VIAL IV ONE; -OLAN10TA19 PO; +OLAN10TA72 PO; -SUCCINYLCHOLINE CHLORIDE 200MG/10ML IV ONE
[2020-11-08] MEDS ORDERED: LORAZEPAM 2MG/ML CPJ IM STA (12:50)
[2020-11-08 13:46] LABS: HEMATOCRIT. 36.4 % (36.0-48.0); HEMOGLOBIN. 11.7 g/dL (12.0-16.0); MEAN CORPUSCULAR HEMOGLOBIN 27.4 pg (28.0-32.0); MEAN CORPUSCULAR VOLUME 85.4 fL (81.0-99.0); MEAN PLATELET VOLUME 7.7 fl (7.4-10.4); PLATELET 800 x1000/uL (130-400); RED BLOOD CELL COUNT 4.27 mill/uL (4.2-5.4); RED CELL DISTRIBUTION WIDTH 17.2 % (11.6-14.6)
[2020-11-08 13:56] LABS: CHLORIDE 105 mEq/L (98-107)
[2020-11-08 13:59] LABS: HCG SCREEN NEGATIVE
[2020-11-08] MEDS ORDERED: LORAZEPAM 2MG/ML CPJ IM ONE (14:15)
[2020-11-08] MEDS ORDERED: PHENYTOIN SODIUM 1,000 MG in SODIUM CHLORIDE 0.9% 100 ML IV ONE (14:15)
[2020-11-08 14:16] LABS: PLATELET ESTIMATE INCREASED
[2020-11-08] MEDS ORDERED: LIDOCAINE HCL 1% 20ML VIAL (Pyxis) INJ ONE (14:22)
[2020-11-08] MEDS ORDERED: POTASSIUM CHLORIDE 20MEQ TABLET SR PO NR (17:00)
[2020-11-08] MEDS: FLUOXETINE HCL 20MG CAPSULE PO SCH (17:15)
[2020-11-08] MEDS ORDERED: LORAZEPAM 2MG/ML CPJ IV ONE ×2 (17:15→19:30)
[2020-11-08] MEDS ORDERED: LAMOTRIGINE 100MG TABLET PO SCH (17:30)
[2020-11-08] MEDS ORDERED: ARIPIPRAZOLE 5MG TABLET PO SCH (17:30)
[2020-11-08] MEDS: LORAZEPAM 2MG/ML CPJ IV PRN ×2 (18:21→22:45)
[2020-11-09] VITALS (8 sets, daily range): BP systolic 103–117; BP diastolic 55–69
[2020-11-09] MEDS: DIVALPROEX SODIUM 500MG DR TABLET PO SCH ×3 (03:14→17:54)
[2020-11-09] MEDS: LORAZEPAM 2MG/ML CPJ IV PRN ×5 (03:15→22:01)
[2020-11-09] MEDS ORDERED: POTASSIUM CHLORIDE 20MEQ TABLET SR PO NR (07:45)
[2020-11-09] MEDS: PHENYTOIN SODIUM EXTENDED 100MG CAPSULE PO SCH ×3 (08:36→17:54)
[2020-11-09] MEDS: ZONISAMIDE 100MG CAPSULE PO SCH (08:36)
[2020-11-09] MEDS: ARIPIPRAZOLE 5MG TABLET PO SCH ×3 (08:38→17:54)
[2020-11-09] MEDS: FOLIC ACID 1MG TABLET PO SCH ×2 (08:38→09:54)
[2020-11-09] MEDS: FLUOXETINE HCL 20MG CAPSULE PO SCH ×2 (09:00→23:08)
[2020-11-09] MEDS ORDERED: FLUOXETINE HCL 20MG CAPSULE PO SCH (22:45)
[2020-11-09] MEDS: LAMOTRIGINE 100MG TABLET PO SCH (23:09)
[2020-11-10] VITALS (11 sets, daily range): BP systolic 98–126; BP diastolic 57–93
[2020-11-10] MEDS: ZONISAMIDE 100MG CAPSULE PO SCH (10:09)
[2020-11-10] MEDS: DIVALPROEX SODIUM 500MG DR TABLET PO SCH ×2 (10:09→18:04)
[2020-11-10] MEDS: PHENYTOIN SODIUM EXTENDED 100MG CAPSULE PO SCH ×3 (10:09→18:04)
[2020-11-10] MEDS: FLUOXETINE HCL 20MG CAPSULE PO SCH (10:09)
[2020-11-10] MEDS: FOLIC ACID 1MG TABLET PO SCH (10:09)
[2020-11-10] MEDS: ARIPIPRAZOLE 5MG TABLET PO SCH ×2 (10:09→18:05)
[2020-11-10] MEDS: LAMOTRIGINE 100MG TABLET PO SCH ×2 (10:10→20:03)
[2020-11-10] MEDS: LORAZEPAM 2MG/ML CPJ IV PRN ×3 (10:59→20:29)
[2020-11-11 04:00] VITALS: BP 103/62
[2020-11-11] MEDS: LORAZEPAM 2MG/ML CPJ IV PRN ×3 (04:00→20:51)
[2020-11-11 08:00] VITALS: BP 122/88
[2020-11-11] MEDS: ARIPIPRAZOLE 5MG TABLET PO SCH ×2 (09:16→17:28)
[2020-11-11] MEDS: ZONISAMIDE 100MG CAPSULE PO SCH (09:17)
[2020-11-11] MEDS: FLUOXETINE HCL 20MG CAPSULE PO SCH (09:17)
[2020-11-11] MEDS: FOLIC ACID 1MG TABLET PO SCH (09:17)
[2020-11-11] MEDS: PHENYTOIN SODIUM EXTENDED 100MG CAPSULE PO SCH ×3 (09:17→17:27)
[2020-11-11] MEDS: DIVALPROEX SODIUM 500MG DR TABLET PO SCH ×2 (09:17→17:27)
[2020-11-11] MEDS: LAMOTRIGINE 100MG TABLET PO SCH ×3 (09:17→21:00)
[2020-11-11 10:04] LABS: HEMATOCRIT. 32.1 % (36.0-48.0); HEMOGLOBIN. 10.8 g/dL (12.0-16.0); MEAN CORPUSCULAR VOLUME 83.4 fL (81.0-99.0); MEAN PLATELET VOLUME 7.5 fl (7.4-10.4); PLATELET 474 x1000/uL (130-400); RED BLOOD CELL COUNT 3.84 mill/uL (4.2-5.4); RED CELL DISTRIBUTION WIDTH 17.4 % (11.6-14.6)
[2020-11-11 10:19] LABS: CHLORIDE 109 mEq/L (98-107)
[2020-11-11 12:00] VITALS: BP 105/71
[2020-11-11 16:00] VITALS: BP 116/70
[2020-11-11 18:00] VITALS: BP 109/55
[2020-11-12] MEDS: DIVALPROEX SODIUM 500MG DR TABLET PO SCH ×2 (07:59→17:12)
[2020-11-12] MEDS: FOLIC ACID 1MG TABLET PO SCH (07:59)
[2020-11-12] MEDS: FLUOXETINE HCL 20MG CAPSULE PO SCH (07:59)
[2020-11-12] MEDS: LAMOTRIGINE 100MG TABLET PO SCH ×2 (08:00→20:09)
[2020-11-12] MEDS: ZONISAMIDE 100MG CAPSULE PO SCH (08:00)
[2020-11-12] MEDS: PHENYTOIN SODIUM EXTENDED 100MG CAPSULE PO SCH ×3 (08:00→17:13)
[2020-11-12] MEDS: ARIPIPRAZOLE 5MG TABLET PO SCH ×2 (08:00→17:13)
[2020-11-12 17:45] LABS: PLATELET ESTIMATE INCREASED
[2020-11-12] MEDS: LORAZEPAM 2MG/ML CPJ IV PRN ×2 (18:44→21:12)
[2020-11-13 08:03] VITALS: BP 107/69
[2020-11-13] MEDS: FOLIC ACID 1MG TABLET PO SCH (08:13)
[2020-11-13] MEDS: PHENYTOIN SODIUM EXTENDED 100MG CAPSULE PO SCH ×3 (08:13→16:55)
[2020-11-13] MEDS: FLUOXETINE HCL 20MG CAPSULE PO SCH (08:13)
[2020-11-13] MEDS: LAMOTRIGINE 100MG TABLET PO SCH ×2 (08:13→20:07)
[2020-11-13] MEDS: ARIPIPRAZOLE 5MG TABLET PO SCH ×2 (08:13→16:55)
[2020-11-13] MEDS: DIVALPROEX SODIUM 500MG DR TABLET PO SCH ×2 (08:13→16:55)
[2020-11-13] MEDS: ZONISAMIDE 100MG CAPSULE PO SCH (08:13)
[2020-11-13 09:49] VITALS: BP 109/71
[2020-11-13 11:36] VITALS: BP 124/63
[2020-11-13 15:18] VITALS: BP 117/73
[2020-11-13 17:03] VITALS: BP 117/73
[2020-11-13 23:21] VITALS: BP 121/86
[2020-11-15] MEDS ORDERED: ZONI100C34 PO (16:33)
[2020-11-15] MEDS ORDERED: ABIL5 PO (16:33)
[2020-11-15] MEDS ORDERED: LAM1 PO (16:33)
[2020-11-15] MEDS ORDERED: VALP250C3 PO (16:33)
== END 2020-11-13 23:48 | DRG 53 ==
LOC: ER 11:48 → MICUSO 15:04 → 3WST 11-09 11:14
PROVIDERS: ADMIT Internal Medicine; ATTEND Internal Medicine
PROC: 02HV33Z Insertion of Infusion Device into Superior Vena Cava, Percutaneous Approach (ICD-10-PCS; principal; 2020-11-08)
PROC: B548ZZA Ultrasonography of Superior Vena Cava, Guidance (ICD-10-PCS; 2020-11-08)
DX: R56.9 Unspecified convulsions (principal); F25.9 Schizoaffective disorder, unspecified; E87.6 Hypokalemia; R51.9 Headache, unspecified; Z20.822 Contact with and (suspected) exposure to COVID-19; F60.9 Personality disorder, unspecified; N92.6 Irregular menstruation, unspecified; F32.9 Major depressive disorder, single episode, unspecified; Z91.5 Personal history of self-harm
CPT/HCPCS: 36415; 71045; 76937; 80048; 80165; 80185; 84703; 85025; 93005; 99291; C1725; J1165; J2060; J3490; J7050; U0003; U0005

== ENCOUNTER 2020-11-13 23:51 | Inpatient (IN) | payer MEDICAID ==
[~2020-11-13] VITALS: Ht 165.1 cm; Wt 81.6 kg
[~2020-11-13 23:51] MED LIST changes: +OLAN10TA19 PO; -OLAN10TA72 PO
[2020-11-14] MEDS ORDERED: PHENYTOIN SODIUM EXTENDED 100MG CAPSULE PO ONE (00:30)
[2020-11-14] MEDS ORDERED: DIVALPROEX SODIUM 500MG DR TABLET PO ONE (00:30)
[2020-11-14] MEDS ORDERED: LORAZEPAM 2MG/ML CPJ IM STA (00:43)
[2020-11-14] MEDS ORDERED: LEVETIRACETAM 1000MG PREMIX 100 ML IV ONE (00:45)
[2020-11-14 01:54] LABS: EOSINOPHILS % 4.1 % (0.0-5.0); HEMATOCRIT. 33.7 % (36.0-48.0); HEMOGLOBIN. 11.2 g/dL (12.0-16.0); LYMPHOCYTES % 14.1 % (20.0-50.0); MEAN CORPUSCULAR HEMOGLOBIN 27.4 pg (28.0-32.0); MEAN CORPUSCULAR VOLUME 82.3 fL (81.0-99.0); MONOCYTES % 8.1 % (2.0-8.0); NEUTROPHILS % 72.7 % (40.0-76.0); RED BLOOD CELL COUNT 4.09 mill/uL (4.2-5.4); RED CELL DISTRIBUTION WIDTH 17.6 % (11.6-14.6)
[2020-11-14 03:46] LABS: ETHANOL BLOOD < 10 mg/dL
[2020-11-14 05:55] LABS: CLARITY URINE TURBID (CLEAR); COLOR URINE YELLOW (YELLOW); KETONES URINE 2+ (NEGATIVE); LEUKOCYTE ESTERASE URINE 2+ (NEGATIVE); NITRITE URINE NEGATIVE (NEGATIVE); OCCULT BLOOD URINE NEGATIVE (NEGATIVE); PH URINE 6.5 (4.5-8.0); PROTEIN URINE 1+ (NEGATIVE); SPECIFIC GRAVITY URINE 1.025 (1.005-1.030)
[2020-11-14] MEDS ORDERED: ACETAMINOPHEN 325MG TABLET PO PRN ×2 (06:15)
[2020-11-14] MEDS ORDERED: ONDANSETRON HCL 4MG/2ML INJ IV PRN (06:15)
[2020-11-14 06:16] LABS: UCG SCREEN NEGATIVE
[2020-11-14 06:17] LABS: *AMPHETAMINES SCREEN URINE NEGATIVE (NEGATIVE); *BARBITURATES SCREEN URINE NEGATIVE (NEGATIVE); *BENZODIAZEPINES SCREEN URINE NEGATIVE (NEGATIVE); *COCAINE SCREEN URINE NEGATIVE (NEGATIVE)
[2020-11-14 06:18] LABS: CANNABINOID URINE SCREEN NEGATIVE (NEGATIVE); METHADONE URINE SCREEN NEGATIVE (NEGATIVE); OPIATES URINE SCREEN NEGATIVE (NEGATIVE); PHENCYCLIDINE URINE SCREEN NEGATIVE (NEGATIVE)
[2020-11-14 07:05] LABS: CHLORIDE 107 mEq/L (98-107)
[2020-11-14 09:11] LABS: MEAN PLATELET VOLUME 8.5 fl (7.4-10.4); PLATELET 406 x1000/uL (130-400)
[2020-11-14] MEDS ORDERED: LORAZEPAM 2MG/ML CPJ IV ONE (14:30)
[2020-11-14 16:30] VITALS: BP 106/58
[2020-11-14 17:25] VITALS: BP 106/58
[2020-11-14 20:00] VITALS: BP 107/60
[2020-11-14] MEDS ORDERED: LORAZEPAM 2MG/ML CPJ IV PRN ×2 (21:00→21:15)
[2020-11-14] MEDS ORDERED: DIVALPROEX SODIUM 500MG DR TABLET PO SCH (21:15)
[2020-11-14] MEDS: ZONISAMIDE 100MG CAPSULE PO SCH (22:43)
[2020-11-14] MEDS: PHENYTOIN SODIUM EXTENDED 100MG CAPSULE PO SCH (22:43)
[2020-11-14] MEDS: ARIPIPRAZOLE 5MG TABLET PO SCH (22:44)
[2020-11-14] MEDS: VALPROIC ACID 250MG CAPSULE PO SCH (22:48)
[2020-11-15 00:36] VITALS: BP 92/43
[2020-11-15 03:57] VITALS: BP 95/61
[2020-11-15] MEDS: PHENYTOIN SODIUM EXTENDED 100MG CAPSULE PO SCH ×3 (06:00→22:28)
[2020-11-15] MEDS: VALPROIC ACID 250MG CAPSULE PO SCH ×3 (06:00→22:28)
[2020-11-15] MEDS ORDERED: ARIPIPRAZOLE 5MG TABLET PO SCH (09:00)
[2020-11-15] MEDS: ARIPIPRAZOLE 5MG TABLET PO SCH ×2 (11:21→17:53)
[2020-11-15] MEDS: ZONISAMIDE 100MG CAPSULE PO SCH (11:21)
[2020-11-15] MEDS: LAMOTRIGINE 100MG TABLET PO SCH ×2 (11:21→22:28)
[2020-11-15 12:00] VITALS: BP 105/48
[2020-11-15 16:00] VITALS: BP 110/55
[2020-11-15] MEDS ORDERED: ABIL5 PO (16:33)
[2020-11-15] MEDS ORDERED: VALP250C3 PO (16:33)
[2020-11-15] MEDS ORDERED: LAM1 PO (16:33)
[2020-11-15] MEDS ORDERED: ZONI100C34 PO (16:33)
[2020-11-15 18:50] VITALS: BP 106/53
[2020-11-15 20:00] VITALS: BP 106/53
[2020-11-16] VITALS: BP 110/56
[2020-11-16 04:00] VITALS: BP 107/58
[2020-11-16] MEDS: PHENYTOIN SODIUM EXTENDED 100MG CAPSULE PO SCH (05:42)
[2020-11-16] MEDS: VALPROIC ACID 250MG CAPSULE PO SCH (05:42)
[2020-11-16 08:00] VITALS: BP 111/53
[2020-11-16] MEDS: ZONISAMIDE 100MG CAPSULE PO SCH (08:18)
[2020-11-16] MEDS: ARIPIPRAZOLE 5MG TABLET PO SCH (08:18)
[2020-11-16] MEDS: LAMOTRIGINE 100MG TABLET PO SCH (08:18)
== END 2020-11-16 12:45 | DRG 53 ==
LOC: ER 23:51 → MICUSO 11-14 01:50 → EDBEDREQ 11-14 01:52 → EDBEDREQTM 11-14 01:52 → 7EST 11-14 15:32
PROVIDERS: ADMIT Internal Medicine; ATTEND Internal Medicine
DX: G40.909 Epilepsy, unspecified, not intractable, without status epilepticus (principal); F20.9 Schizophrenia, unspecified; Z20.822 Contact with and (suspected) exposure to COVID-19; F60.9 Personality disorder, unspecified; Z79.899 Other long term (current) drug therapy; Z91.5 Personal history of self-harm; Z88.8 Allergy status to other drugs, medicaments and biological substances; L81.9 Disorder of pigmentation, unspecified
CPT/HCPCS: 36415; 80053; 80305; 80320; 81003; 81025; 82140; 82962; 85025; 87426; 93005; 99285; J1953; J2060; G0480

== ENCOUNTER 2023-11-04 | Emergency (ER) | payer MEDICAID ==
[~2023-11-04] VITALS: Ht 165.1 cm; Wt 69.0 kg
[~2023-11-04] MED LIST changes: -ATOM40CA MT; -DIVA-18 PO; -DIVA500T3 MT; -FERR325T6 MT; -FLUO20CA39 PO; -FOLI-43 PO; +LAM1 PO; -LAMO100T16 PO; +LEVE1000 PO; -NITR-87 MT; -NITR100C11 PO; -OLAN10TA19 PO; -PHEN100C12 PO; -PHEN100C4 PO; -RISP1TAB97 PO
[2023-11-04 00:06] VITALS: BP 124/71; PULSE 64; RESP 16; TEMP 98.7; O2SAT 100
[2023-11-04] MEDS ORDERED: LEVETIRACETAM 1000MG PREMIX 100 ML IV ONE (00:15)
[2023-11-04] MEDS: LORAZEPAM 2MG/ML INJ IM ONE (01:45)
[2023-11-04] MEDS: HALOPERIDOL LACTATE 5MG/ML VIAL IM ONE (01:45)
[2023-11-04] MEDS: PHENYTOIN SODIUM EXTENDED 100MG CAPSULE PO ONE (04:00)
[2023-11-04] MEDS: PHENYTOIN SODIUM 1,000 MG in SODIUM CHLORIDE 0.9% 100 ML IV ONE (05:52)
== END 2023-11-04 03:20 | disposition left against medical advice (07) ==
LOC: ER
DX: G40.901 Epilepsy, unspecified, not intractable, with status epilepticus (principal); Z79.899 Other long term (current) drug therapy
CPT/HCPCS: 99285; 70450; 96372; J1630; J2060; J1165; J7050